=== PATIENT | female | born 1955 | race Caucasian/White ===

== ENCOUNTER 2018-11-25 18:49 | Emergency (ER) | payer OTHER ==
[~2018-11-25] VITALS: Ht 157.5 cm; Wt 126.1 kg
--- OUTSIDE RECORDS SUMMARY | ~2018-11-25 | XMS | Encounter Summary ---
Demographics + + + | Address | [address] | | | [place] [address] | + + + | Home Phone | | + + + | Preferred Language | Unknown | + + + | Marital Status | | + + + | Scientology Affiliation | 1013 | + + + | Race | Unknown | + + + | Ethnic Group | Unknown | + + + Author + + + | Author | [facility] | | | and [place] | + + + | Organization | [facility] | | | and [place] | + + + | Address | Unknown | + + + | Phone | Unavailable | + + + Support + + +---------+ + | Name | Relationship | Address | Phone | + + +---------+ + | Tammi Bowen | ECON | Unknown | | + + +---------+ + | Travon Hansen | ECON | Unknown | | + + +---------+ + | Katiana Rosado | ECON | Unknown | | + + +---------+ + Care Team Providers + +------+ + | Care Credit Specialist Name | Role | Phone | + +------+ + | Anival Dietz MD | PCP | | + +------+ + Encounter Details +--------+ + + + + | Date | Type | Department | Care Team | Description | +--------+ + + + + | 10/10/ | Abstract | [facility] [place] | Jaida Yoo W, | | | 2018 | | NEPHROLOGY [address] | MD [address] | | | | | [address] | [address] [place] | | | | | [place], [place] | [place] [address] | | | | | [address] | [phone] | | | | | [phone] | | | +--------+ + + + + Social History + +-------+ +--------+------+ | Tobacco Use | Types | Packs/Day | Years | Date | | | | | Used | | + +-------+ +--------+------+ | Never Smoker | | | | | + +-------+ +--------+------+ + +---+---+---+ | Smokeless Tobacco: | | | | | Never Used | | | | + +---+---+---+ + + +---------+ + | Alcohol Use | Drinks/We | oz/Week | Comments | | | ek | | | + + +---------+ + | No | | | | + + +---------+ + + + + | Sex Assigned at | Date Recorded | | | | + + + | Not on file | | + + + + + + + | Job Start Date | Occupation | Industry | + + + + | Not on file | Not on file | Not on file | + + + + + + + + | Travel History | Travel Start | Travel End | + + + + + + | No recent travel history available. | + + documented as of this encounter Plan of Treatment +--------+ + + + + | Date | Type | Specialty | Care Team | Description | +--------+ + + + + | 12/02/ | Off-Site | Nephrology | Jerad Ratliff | | | 2018 | Visit | | M, DO [address] | | | | | | [address] | | | | | | [place] | | | | | | [id number] | | | | | | | | +--------+ + + + + documented as of this encounter Visit Diagnoses Not on filedocumented in this encounter"
--- OUTSIDE RECORDS SUMMARY | ~2018-11-25 | XMS | Encounter Summary ---
Demographics + + + | Address | [address] | | | [place] [address] | + + + | Home Phone | | + + + | Preferred Language | Unknown | + + + | Marital Status | | + + + | Adventist Affiliation | 1013 | + + + | Race | Unknown | + + + | Ethnic Group | Unknown | + + + Author + + + | Author | [facility] | | | and [place] | + + + | Organization | [facility] | | | and [place] [...] Team Providers + +------+ + | Care Maintenance Team Leader Name | Role | Phone | + +------+ + | Anival Dietz MD | PCP | | + +------+ + Reason for Visit +--------+ + | Reason | Comments | +--------+ + | Other | | +--------+ + Encounter Details +--------+ + + + + | Date | Type | Department | Care Team | Description | +--------+ + + + + | 09/12/ | Telephone | [facility] [place] | Jaida Yoo W, | Other | | 2019 | | NEPHROLOGY [address] | MD [address] | | | | | [address] | [address] [place] | | | | | [place] | [place] [address] | | | | | [address] | [phone] | | | | | [phone] | | | +--------+ + + + [...] | Visit | | M, DO [address] | | | | | | [address] | | | | | | [place] | | | | | | [address] | | | | | | | | +--------+ + + + + documented as of this encounter Visit Diagnoses Not on filedocumented in this encounter"
--- OUTSIDE RECORDS SUMMARY | ~2018-11-25 | XMS | Encounter Summary ---
Demographics + + + | Address | [address] | | | [place] [address] | + + + | Home Phone | | + + + | Preferred Language | Unknown | + + + | Marital Status | | + + + | Yazdanism Affiliation | 1013 | + + + | Race | Unknown | + + + | Ethnic Group | Unknown | + + + Author + + + | Author | [facility] | | | and [place] | + + + | Organization | [facility] | | | and [place] | [...] Team Providers + +------+ + | Care Computer Operations Specialist Name | Role | Phone | + +------+ + | Anival Dietz MD | PCP | | + +------+ + Reason for Referral Evaluate & Treat (Routine) +--------+ + + + + + | Status | Reason | Specialty | Diagnoses / | Referred By | Referred To | | | | | Procedures | Contact | Contact | +--------+ + + + + + | Closed | Specialty | Surgery / | Diagnoses | Borden, | Michi, | | | Services | General | CKD | MD Sadie | MD Sadie | | | Required | Surgery | (chronic | [address] | [address] | | | | | kidney | [place], | | | | | disease) | [place] | [place] [address] | | | | | stage 5, GFR | [address] | Phone: | | | | | less than | Phone: | [phone] | | | | | 15 ml/min | [phone] | Fax: | | | | | (HCC) | Fax: | [phone] | | | | | | [phone] | | +--------+ + + + + + Encounter Details +--------+ + + + + | Date | Type | Department | Care Team | Description | +--------+ + + + + | 10/18/ | Orders Only | [facility] [place] [facility] | Sadie Borden MD | CKD (chronic kidney | | 2019 | | SURGERY [address] | [address] [facility] | disease) stage 5, | | | | [place], [place] | [place] [address] | GFR less than 15 | | | | [address] | [phone] | ml/min (HCC) | | | | [phone] | | (Primary Dx) | +--------+ + + + + Social [...] [address] | | | | | | [address] | | | | | | [place] | | | | | | [address] | | | | | | | | +--------+ + + + + documented as of this encounter Visit Diagnoses + + | Diagnosis | + + | CKD (chronic kidney disease) stage 5, GFR less than 15 ml/min ([facility]) - Primary Chronic | | kidney disease, Stage V | + + documented in this encounter"
--- OUTSIDE RECORDS SUMMARY | ~2018-11-25 | XMS | Encounter Summary ---
Demographics + + + | Address | [address] | | | [place] [address] | + + + | Home Phone | | + + + | Preferred Language | Unknown | + + + | Marital Status | | + + + | Judaism Affiliation | 1013 | + + + | Race | Unknown | + + + | Ethnic Group | Unknown | + + + Author + + + | Author | [facility] | | | and [place] | + + + | Organization | [facility] | | | and [place] [...] Team Providers + +------+ + | Care Pharmacy Helper Name | Role | Phone | + +------+ + | Anival Dietz MD | PCP | | + +------+ + Reason for Visit Evaluate & Treat (Routine) + +--------+ + + + + | Status | Reason | Specialty | Diagnoses / | Referred By | Referred To | | | | | Procedures | Contact | Contact | + +--------+ + + + + | Authorized | | Nephrology | Diagnoses | J Luis, | Gaudencio, | | | | | End stage | Anival | Jerad Webb DO | | | | | renal | MD Jose | [address] | | | | | disease | [address] | [address] | | | | | ([facility]) | [place] | [address] [place] | | | | | Procedures | [place], [place] | [place], [place] | | | | | [place] | [address] | [address] Phone: | | | | | RELATED SVC | Phone: | [phone] | | | | | MONTHLY | [phone] | Fax: | | | | | 20&/> YR OLD | Fax: | [phone] | | | | | 4/> VISITS | [phone] | | + +--------+ + + + + Encounter Details +--------+ + + + + | Date | Type | Department | Care Team | Description | +--------+ + + + + | 09/23/ | Off-Site | [facility] [place] | Jerad Ratliff | ESRD (end stage | | 2019 | Visit | NEPHROLOGY [address] | M, DO [address] | renal disease) (HCC) | | | | [address] | [place] | (Primary Dx) | | | | [place], [place] | [place] | | | | | [address] | [address] | | | | | [phone] | | | +--------+ + + + [...] + + documented as of this encounter Last Filed Vital Signs + + + + | Vital Sign | Reading | Time Taken | + + + + | Blood Pressure | 157/72 | 09/23/2018 1619 PST | + + + + | Pulse | - | - | + + + + | Temperature | 36.8 C (98.2 F) | 09/23/2018 1619 PST | + + + + | Respiratory Rate | - | - | + + + + | Oxygen Saturation | - | - | + + + + | Inhaled Oxygen | - | - | | Concentration | | | + + + + | Weight | - | - | + + + + | Height | - | - | + + + + | Body Mass Index | - | - | + + + + documented in this encounter Patient Instructions Patient Instructions Jerad Ratliff DO - 09/23/2018 10:30 PSTNone. documented in this encounter Progress Notes Jerad Ratliff DO - 09/23/2018 1030 PSTFormatting of this note might be different fro m the original. Subjective: [facility] NOTE Patient ID: Yaritza Gusman is a 63 y.o. female. 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 She is doing better with her fluid restriction and interdialytic weight gains. Denies liset st pain, anorexia, STARK or hiccups. 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 It has a very strong thrill and is well healed. She also has a history of anemia secondary to CKD, CKD/MBD, hypertension, centripetal obesi ty, and Type II DM. Outpatient Prescriptions Marked as Taking for the 09/23/18 encounter (Off-Site Visit) with Jon Ratliff DO Medication Sig Dispense Refill b complex-vitamin c-folic acid (NEPHRO-CALIN) tablet Take 1 tablet by mouth Daily. 90 ta blet 3 [place]NA MICROLET LANCETS MISC benzonatate (TESSALON) 200 MG capsule Take 200 mg by mouth Twice daily as needed. Blood Glucose Monitoring Suppl (CONTOUR NEXT MONITOR) w/Device KIT Cholecalciferol (VITAMIN D PO) Take 1,000 Units by mouth Daily. cloNIDine (CATAPRES) 0.2 MG tablet Take 1 tablet by mouth 2 times daily. (Patient holly welch differently: Take 0.3 mg by mouth 2 times daily.) 180 tablet 3 CONTOUR NEXT TEST strip desonide (DESOWEN) 0.05% cream Apply topically 2 times daily. dilTIAZem (CARTIA XT) 240 MG 24 hr capsule Take 1 capsule by mouth Daily. 90 capsule 3 doxercalciferol (HECTOROL) 2 mcg/mL injection Inject 1 mcg into the vein Three times a week. dulaglutide (TRULICITY) 1.5 mg/0.5 mL injection Inject 1.5 mg under the skin Once a wee k. epoetin brendan (EPOGEN,PROCRIT) 3,000 units/mL injection Inject 4,000 Units under the ski n Three times a week. gentamicin 0.1% cream Apply topically Three times a week. Bring to dialysis clinic 30 g 0 HUMULIN R U-500 KWIKPEN 500 UNIT/ML concentrated injection (pen) 100 u in the AM and 80 u in the PM hydrALAZINE (APRESOLINE) 50 MG tablet Take 1 tablet by mouth 2 times daily. (Patient bayron cadet differently: Take 50 mg by mouth Daily.) 60 tablet 11 insulin pen needle (B-D ULTRAFINE III SHORT PEN) 31 gauge x 8 mm by Other route as need ed for Other. Timolol Maleate (ISTALOL) 0.5 % (DAILY) SOLN Apply 1 drop to eye Daily. timolol maleate (TIMOPTIC) 0.5% ophthalmic solution traMADol (ULTRAM) 50 mg tablet Take 1 tablet by mouth every 8 hours as needed. 20 table t 0 VELPHORO 500 MG chewable tablet Allergies Allergen Reactions Codeine Nausea And Vomiting Penicillins Swelling Arm it was given in swelled up Adhesive & Tape Itching Atorvastatin Nausea Only Doesn Pravastatin Nausea Only Review of Systems Objective: BP 157/72 | Temp 36.8 C (98.2 F) EDW 127 kg Physical Exam Heart: Regular rate and rhythm with no S3, S4, murmur or rub. Lungs: CTA bilaterally. No rales or wheezes. Abdomen: soft, obese, nontender, NABS. Extremities: no edema, clubbing, or cyanosis. (+) 5 mm AVF at Right arm with strong thril l. LAB: BUN 78, Cr 5.55, K+ 4.6, HCO3 22, Ca++ 8.9, PO4 6.7, PTH 303, Alb 3.7, Hbaic 8.49 %, Hb 11.5, TSat. = 15 %, Ferritin 172, spKT/V = 1.46. Assessment: 1. ESRD-- her adequacy and ECF volume appear stable on her current Rx, N17H, 2K+, QB 400 , QD 600, 4 hours, thrice weekly. 2. Hypertension-- her BP control is farily good. However, given her multiple CV risk facto rs, I am wondering if she may benefit from switching to an ACEI, e.g. Lisinopril. She DENIES every having a BP med that caused cough, or tongue swelling. She verbally conse nts to trying it, therefore will DC the hydralazine and start lisinopril 10 mg, Q daily. 3. Anemia secondary CKD-- she may need some additional Fe, however the Hb is improved. and will decrease the EPO by 25%. 4. CKD/MBD--her PTH is steadily improving on the current dose of Hectorol. She was couns eled about foods rich in PO4 as well, and is using Velphoro. 5. Nutrition-- Salb is decreased minimally. I encouraged her to maximize her daily inta ke of high biological value protein. 6. Transplantation--she is still considering this long-term. 7. Type II DM-- suboptimal control. This is being managed by her PCP, Dr. Dietz. 8. Dialysis access-- this appears to be developing very nicely. She is to see Dr. Stephens in the near future, to see if the AVF could be cannulated sooner, e.g. 8 weeks as it is deve loping very quickly? Plan: 1. Will decrease her EPO by 25 %, per the Regine anemia algorithm to target the Hb 10-11 g/dl. 2. Will DC her Hydralazine. 3. Start lisinopril 10 mg, Q day, as above. 4. If her BP is too low, will decrease her dose of the Diltiazem ER? 5. She is weighing the Pro's and Con's of pursuing a renal allograft, for now. 6. Will recheck her in 2 weeks by the Nephrology Service. Cc: Suman Stephens MD, FACS [place] Dietz M.D. documented in this e ncounter Plan of Treatment +--------+ + + + + | Date | Type | Specialty | Care Team | Description | +--------+ + + + + | 12/02/ | Off-Site | Nephrology | Jerad Ratliff | | | 2018 | Visit | | DO Jon [address] | | | | | | [address] | | | | | | [place] | | | | | | [address] | | | | | | | | +--------+ + + + + documented as of this encounter Visit Diagnoses + + | Diagnosis | + + | ESRD (end stage renal disease) (HCC) - Primary End stage renal disease | + + documented in this encounter"
--- OUTSIDE RECORDS SUMMARY | ~2018-11-25 | XMS | Encounter Summary ---
Demographics + + + | Address | [address] | | | [place] [address] | + + + | Home Phone | | + + + | Preferred Language | Unknown | + + + | Marital Status | | + + + | Buddhist Affiliation | 1013 | + + + | Race | Unknown | + + + | Ethnic Group | Unknown | + + + Author + + + | Author | [facility] | | | and [place] | + + + | Organization | [facility] | | | and [place] | [...] Team Providers + +------+ + | Care Physician Credentialing Specialist Name | Role | Phone | + +------+ + | Anival Dietz MD | PCP | | + +------+ + Encounter Details +--------+ + + + + | Date | Type | Department | Care Team | Description | +--------+ + + + + | 09/19/ | Documentati | [facility] [place] | Jaida Yoo W, | | | 2019 | on | NEPHROLOGY [address] | [address] | | | | | [address] | [address] [place] | | | | | [place], [place] | [place] [address] | | | | | [address] | [phone] | | | | | [phone] | | | +--------+ + + + [...] + + documented as of this encounter Progress Notes Elise Gudino - 09/19/2018 1256 PSTManually faxed FMLA papers from [facility] [employer] to: Teressa Cosme, round kiln drawer at (fx) [phone]. Sent original copy to scan. documented in this enc ounter Plan of Treatment +--------+ + + + + | Date | Type | Specialty | Care Team | Description | +--------+ + + + + | 12/02/ | Off-Site | Nephrology | Jerad Ratliff | | | 2018 | Visit | | DO Khloe Webb | | | | | | [address] | | | | | | [place] | | | | | | [address] | | | | | | | | +--------+ + + + + documented as of this encounter Visit Diagnoses Not on filedocumented in this encounter"
--- OUTSIDE RECORDS SUMMARY | ~2018-11-25 | XMS | Encounter Summary ---
Demographics + + + | Address | [address] | | | [place] [address] | + + + | Home Phone | | + + + | Preferred Language | Unknown | + + + | Marital Status | | + + + | Samaritan Affiliation | 1013 | + + + | Race | Unknown | + + + | Ethnic Group | Unknown | + + + Author + + + | Author | [facility] | | | and [place] | + + + | Organization | [facility] | | | and [place] [...] Team Providers + +------+ + | Care Business Line Controller Name | Role | Phone | + [...] NEPHROLOGY [address] | MD [address] | | | | | [address] | [address] [place] | | | | | [place], [place] | [place] [address] | | | | | [address] | [phone] | | | | | [phone] | | | +--------+ + + + [...] | Visit | | M, DO [address] | | | | | | [address] | | | | | | [place] | | | | | | [id number] | | | | | | | | +--------+ + + + + documented as of this encounter Visit Diagnoses Not on filedocumented in this encounter"
--- OUTSIDE RECORDS SUMMARY | ~2018-11-25 | XMS | Encounter Summary ---
Demographics + + + | Address | [address] | | | [place] [address] | + + + | Home Phone | | + + + | Preferred Language | Unknown | + + + | Marital Status | | + + + | Zoroastrian Affiliation | 1013 | + + + | Race | Unknown | + + + | Ethnic Group | Unknown | + + + Author + + + | Author | [facility] | | | and [place] | + + + | Organization | [facility] | | | and [place] | [...] Team Providers + +------+ + | Care Financial Services Specialist Name | Role | Phone | + +------+ + | Anival Dietz MD | PCP | | + +------+ + Reason for Visit +---------+ + | Reason | Comments | +---------+ + | Post Op | Right arm translocation cephalic vein fistula | +---------+ + Evaluate & Treat (Routine) + + + + + + + | Status | Reason | Specialty | Diagnoses / | Referred By | Referred To | | | | | Procedures | Contact | Contact | + + + + + + + | Authorized | Specialty | Surgery / | Diagnoses | Yoo, | Field, | | | Services | General | End stage | Jaida Aggarwal, | Suman Jones, | | | Required | Surgery | renal | [address] | , [address] | | | | | disease | [place] | [address] | | | | | ([facility]) | [address] | [place], | | | | | | [place] | [place] [address] | | | | | | [address] | Phone: | | | | | | Phone: | [phone] | | | | | | [phone] | Fax: | | | | | | Fax: | [phone] | | | | | | [phone] | | + + + + + + + Encounter Details +--------+---------+ + + + | Date | Type | Department | Care Team | Description | +--------+---------+ + + + | 09/19/ | Office | [facility] | Suman Stephens | CKD (chronic kidney | | 2019 | Visit | SURGERY [address] | MD Karen, FACS [address] | disease) stage 5, | | | | [place], [place] | [facility] | GFR less than 15 | | | | [address] | [place] [address] | ml/min (HCC) | | | | [phone] | [phone] | (Primary Dx); | | | | | | Post-operative state | +--------+---------+ + + + Social History + +-------+ [...] + + + | Blood Pressure | - | - | + + + + | Pulse | 72 | 09/19/2018834 PST | + + + + | Temperature | 35.7 C (96.3 F) | 09/19/2018834 PST | + + + + | Respiratory Rate | - | - | + + + + | Oxygen Saturation | 97% | 09/19/2018834 PST | + + + + | Inhaled Oxygen | - | - | | Concentration | | | + + + + | Weight | 129.3 kg (285 lb 0.9 | 09/19/2018 0835 PST | | | oz) | | + + + + | Height | 154.9 cm (5' 1") | 09/19/2018 0835 PST | + + + + | Body Mass Index | 53.86 | 09/19/2018 0835 PST | + + + + documented in this encounter Progress Notes , Suman Jones MD, FACS - 09/19/2018 0840 PSTFormatting of this note might be differen t from the original. Patient Identification: Yaritza Gusman 1955 Is a 63 y.o. female , a patie nt of Anival Dietz MD. Patient is here alone. S: Date of surgery: 08/15/2018. Title of surgery: RIGHT arm- translocation cephalic vein. Date of surgery: 07/25/2018. Title of surgery: RIGHT brachial artery t o cephalic vein fistula. Physician notes: Patient arrives 35 day(s) s/p RIGHT arm translocation of cephalic vein. She reports recove ring well post surgery. Patient denies right arm or hand pain , admits to slight numbness . 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, type II, INSULIN & ORAL Dependent 05/25/2015 Diabetic macular edema of both eyes ([facility]) Elevated hemoglobin A1c 06/14/2018 ESRD (end stage renal disease) ([facility]) Folliculitis Gait instability Glaucoma Greater trochanteric bursitis of right hip Hemodialysis patient ([facility]) sun- Hyperlipemia Hypertension Diagnosed ~2004 Hypoxemia requiring supplemental oxygen Influenza pneumonia 1967 Recovered Insulin dependent diabetes mellitus ([facility]) Obesity Obstructive sleep apnea on CPAP 05/29/2012 On CPAP Paroxysmal supraventricular tachycardia ([facility]) PONV (postoperative nausea and vomiting) Proteinuria Psoriasis Seborrheic keratosis Shoulder fracture 2011 Currently healing - from fall at work Vitamin D deficiency Wears partial dentures Past Surgical History: Procedure Laterality Date ABCESS DRAINAGE 1980 right arm AV FISTULA INSERTION Right 07/25/2018 Procedure: INSERTION AV FISTULA; Surgeon: Suman Stephens MD, FACS; Location: [facility] OR CATARACT REMOVAL 2014 bilateral Insertion of tunneled central venous catheter 06/04/2018 without subcutaneous port or pump: Dr. Jose Youssfe, [facility] KNEE ARTHROSCOPY 2009 left knee SHUNT PLACEMENT/INSERTION N/A 06/14/2018 Procedure: TUNNEL HEMODIALYSIS CATHETER; Surgeon: Sadie Borden MD; Location: [facility] O R TONSILLECTOMY AND ADENOIDECTOMY 1958 VEIN SURGERY Right 08/15/2018 Procedure: RIGHT arm-translocation cephalic vein; Surgeon: Suman Stephens MD, FACS; Location: [facility] MAIN OR Allergies Allergen Reactions Codeine Nausea And Vomiting Penicillins Swelling Arm it was given in swelled up Adhesive & Tape Itching Atorvastatin Nausea Only Doesn Lisinopril Nausea Only Losartan Nausea Only Lovastatin Nausea Only Pravastatin Nausea Only Medications: Outpatient Encounter Prescriptions as of 09/19/2018 Medication Sig Dispense Refill b complex-vitamin c-folic [...] epoetin brendan (EPOGEN,PROCRIT) 3,000 units/mL injection Inject 8,000 Units under the ski n Three times a week. gentamicin 0.1% cream Apply topically Three times a week. Bring to dialysis clinic 30 g 0 HUMULIN R U-500 KWIKPEN 500 UNIT/ML concentrated injection (pen) 100 u in the AM and 80 u in the PM hydrALAZINE (APRESOLINE) 50 MG tablet Take 1 tablet by mouth 2 times daily. 60 tablet 1 1 insulin pen needle (B-D ULTRAFINE III SHORT [...] t 0 VELPHORO 500 MG chewable tablet Facility-Administered Encounter Medications as of 09/19/2018 Medication Dose Route Frequency Provider Last Rate Last Dose ondansetron (ZOFRAN ODT) disintegrating tablet 4 mg 4 mg Oral Q6H PRN Suman camilo MD, FACS Family History Problem Relation Age of Onset Other (see comment) Brother Neurodegenerative disease Diabetes Brother Ovarian cancer Sister Stomach cancer Sister Cancer Sister Rashes / skin problems Paternal Grandfather Breast cancer Maternal Grandmother Coronary artery disease Other Diabetes Other Kidney disease Neg Hx Social History: She reports that she has never smoked. She has never used smokeless tobacco. She reports th at she does not drink alcohol or use drugs. PHYSICAL EXAM Vitals: 09/19/18 0835 Pulse: 72 Temp: 35.7 C (96.3 F) TempSrc: Temporal SpO2: 97% Weight: 129.3 kg (285 lb 0.9 oz) Height: 1.549 m (5' 1") Body mass index is 53.86 kg/m. General Appearance: Alert, cooperative, no distress, appears stated age. Skin: Warm and dry Upper Extremities: RIGHT arm incisions ar healing, dry eschar in the upper portion of the wound, good thrill present. Sutures removed from RIGHT arm incision. Palpable Pulses: RIGHT LEFT Brachial Radial 2+ Ulnar Neurologic: Alert and oriented x3,Moving all 4 extremities.Am bulates with Walker. ULTRASOUND REPORT: PATIENT NAME : Yaritza Gusman EQUIPMENT: [employer] M-Turbo with 10-5 mHertz probe. INDICATIONS: S/P RIGHT arm translocation of cephalic vein FINDING: RIGHT cephalic vein measures 7.7 mm and is 3.1 mm deep to the skin. Upper arm is 6.7 mm wide and 3.0 mm deep to the skin. IMPRESSION: Functioning AV fistula. Assessment 1. CKD (chronic kidney disease) stage 5, GFR less than 15 ml/min ([facility]) 2. Post-operative state Plan 1. S/P RIGHT arm translocation of cephalic vein Healing well. Return to clinic in 3 weeks. Suman Stephens MD, FACS Vascular and General Surgery documented in t his encounter Plan of Treatment +--------+ + + + + | Date | Type | Specialty | Care Team | Description | +--------+ + + + + | 12/02/ | Off-Site | Nephrology | Jerad Ratliff | | | 2018 | Visit | | DO Jon [address] | | | | | | [address] | | | | | | [place] | | | | | | [address] | | | | | | | | +--------+ + + + + documented as of this encounter Visit Diagnoses + + | Diagnosis | + + | CKD (chronic kidney disease) stage 5, GFR less than 15 ml/min ([facility]) - Primary Chronic | | kidney disease, Stage V | + + | Post-operative state Other postprocedural status | + + documented in this encounter
--- OUTSIDE RECORDS SUMMARY | ~2018-11-25 | XMS | Encounter Summary ---
Demographics + + + | Address | [address] | | | [place] [address] | + + + | Home Phone | | + + + | Preferred Language | Unknown | + + + | Marital Status | | + + + | Zoroastrianism Affiliation | 1013 | + + + | Race | Unknown | + + + | Ethnic Group | Unknown | + + + Author + + + | Author | [facility] | | | and [place] | + + + | Organization | [facility] | | | and [place] [...] Team Providers + +------+ + | Care Email Marketing Processor Name | Role | Phone | + [...] [address] | | | | | ([facility]) | [address] [place] | [address] | | | | | Procedures | [place], [place] | [place], [place] | | | | | ID ESRD | [id number] | [address] Phone: | | | | | RELATED SVC | Phone: | [phone] | | | | | MONTHLY | [phone] | Fax: | | | | | 20&/> YR OLD | Fax: | [phone] | | | | | 4/> VISITS | [phone] | | + +--------+ + + + [...] | | [address] | [place] | (Primary Dx) | | | | [place], [place] | [place] | | | | | [address] | [address] | | | | | [phone] | | | +--------+ + + + [...] seen on the MWF shift at the [facility], Judy pearce. She is doing [...] Nephrology Service. Cc: Suman Stephens MD, FACS [place] Reg[facility] Fairviewcarlo Dietz M.D. documented in this e ncounter Plan of Treatment +--------+ + + + + | Date | Type | Specialty | Care Team | Description | +--------+ + + + + | 12/02/ | Off-Site | Nephrology | Jerad Ratliff | | | 2018 | Visit | | DO Jon [address] | | | | | | [address] | | | | | | [place] | | | | | | [address] | | | | | | | | +--------+ + + + + documented as of this encounter Visit Diagnoses + + | Diagnosis | + + | ESRD (end stage renal disease) (HCC) - Primary End stage renal disease | + + documented in this encounter"
--- OUTSIDE RECORDS SUMMARY | ~2018-11-25 | XMS | Encounter Summary ---
Demographics + + + | Address | [address] | | | [place] [address] | + + + | Home Phone | | + + + | Preferred Language | Unknown | + + + | Marital Status | | + + + | Yarsani Affiliation | 1013 | + + + | Race | Unknown | + + + | Ethnic Group | Unknown | + + + Author + + + | Author | [facility] | | | and [place] | + + + | Organization | [facility] | | | and [place] | [...] Team Providers + +------+ + | Care Shop Welder Name | Role | Phone | + +------+ + | Anival Dietz MD | PCP | | + +------+ + Reason for Visit +---------+ + | Reason | Comments | +---------+ + | Post Op | right arm translocation cephalic vein | +---------+ + Evaluate & Treat (Routine) [...] End stage | Jaida Aggarwal, | Suman I, | | | Required | Surgery | renal | [address] | , [address] | | | | | disease | [place] | [address] | | | | | ([facility]) | [address] | [place], | | | | | | [place], [place] | [place] [address] | | | | | | [address] | Phone: | | | | | | Phone: | [phone] | | | | | | [phone] | Fax: | | | | | | Fax: | [phone] | | | | | | [phone] | | + + + + + + + Encounter Details +--------+---------+ + + + | Date | Type | Department | Care Team | Description | +--------+---------+ + + + | 10/10/ | Office | [facility] | Suman Stephens | CKD (chronic kidney | | 2019 | Visit | SURGERY [address] | MD Karen, FACS [address] | disease) stage 5, | | | | [place], [place] | [facility] | GFR less than 15 | | | | [address] | [place] [address] | ml/min (HCC) | | | | [phone] | [phone] | (Primary Dx); | | | | [...] + + + + | Pulse | 80 | 10/10/2018954 PST | + + + + | Temperature | 36.1 C (97 F) | 10/10/2018954 PST | + + + + | Respiratory Rate | 16 | 10/10/2018954 PST | + + + + | Oxygen Saturation | 95% | 10/10/2018954 PST | + + + + | Inhaled Oxygen | - | - | | Concentration | | | + + + + | Weight | 129.3 kg (285 lb) | 10/10/2018 0955 PST | + + + + | Height | 154.9 cm (5' 1") | 10/10/2018 0955 PST | + + + + | Body Mass Index | 53.85 | 10/10/2018 0955 PST | + + + + documented in this encounter Progress Notes Field, Suman Jones MD, FACS - 10/10/2018 1000 PSTFormatting of this note might be differen t from the original. Patient Identification: Yaritza Gusman 1955 Is a 63 y.o. female , a patie nt of Anival Dietz MD. Patient is here with alone. S: Date of surgery: 08/15/2018. Title of surgery: RIGHT arm- translocation cephalic vei n. Date of surgery: 07/25/2018. Title of surgery: RIGHT br achial artery to cephalic vein fistula. Physician notes: Patient arrives 56 day(s) s/p RIGHT arm translocation of cephalic vein. Patient denies righ t arm or hand pain , denies numbness. Patient is currently dialyzing via RIGHT tunneled IJ catheter, reports they said "the venous side" is not functioning. Next dialysis is Sunday. 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, type II, INSULIN & ORAL Dependent 05/25/2015 Diabetic macular edema of both eyes (HCC) Elevated hemoglobin A1c 06/14/2018 ESRD (end stage renal disease) (HCC) Folliculitis Gait instability Glaucoma Greater trochanteric bursitis of right hip Hemodialysis patient (HCC) sun- Hyperlipemia Hypertension Diagnosed ~2004 Hypoxemia requiring supplemental oxygen Influenza pneumonia 1967 Recovered Insulin dependent diabetes mellitus (HCC) Obesity Obstructive sleep apnea on CPAP 05/29/2012 On CPAP Paroxysmal supraventricular tachycardia (HCC) PONV (postoperative nausea and vomiting) Proteinuria Psoriasis Seborrheic keratosis Shoulder fracture 2011 Currently healing - from fall at work Vitamin D deficiency Wears partial dentures Past Surgical History: Procedure Laterality Date ABCESS DRAINAGE 1981 right arm AV FISTULA INSERTION Right 07/25/2018 Procedure: INSERTION AV FISTULA; Surgeon: Suman Stephens MD, FACS; [facility] bilateral Insertion of tunneled central venous catheter 06/04/2018 without subcutaneous port or pump: Dr. Jose Youssef, [facility] KNEE ARTHROSCOPY 2009 left knee SHUNT PLACEMENT/INSERTION N/A 06/14/2018 Procedure: TUNNEL HEMODIALYSIS CATHETER; Surgeon: Sadie Borden MD; Location: [facility] MAIN O R TONSILLECTOMY AND ADENOIDECTOMY 9 VEIN SURGERY Right 08/15/2018 Procedure: RIGHT arm-translocation cephalic vein; Surgeon: Suman Stephens MD, FACS; Location: [facility] MAIN OR Allergies Allergen Reactions Codeine Nausea And Vomiting Penicillins Swelling Arm it was given in swelled up Adhesive & Tape Itching Atorvastatin Nausea Only Doesn Pravastatin Nausea Only Medications: Outpatient Encounter Prescriptions as of 10/10/2018 Medication Sig Dispense Refill b complex-vitamin c-folic [...] Other route as need ed for Other. lisinopril (PRINIVIL, ZESTRIL) 10 mg tablet Take 1 tablet by mouth Daily. 60 tablet 5 Timolol Maleate (ISTALOL) 0.5 % (DAILY) SOLN Apply 1 drop to eye Daily. timolol maleate (TIMOPTIC) 0.5% ophthalmic solution traMADol (ULTRAM) 50 mg tablet Take 1 tablet by mouth every 8 hours as needed. 20 table t 0 VELPHORO 500 MG chewable tablet No facility-administered encounter medications on file as of 10/10/2018. Family History Problem Relation Age of Onset [...] alcohol or use drugs. PHYSICAL EXAM Vitals: 10/10/18 0955 Pulse: 80 Resp: 16 Temp: 36.1 C (97 F) TempSrc: Temporal SpO2: 95% Weight: 129.3 kg (285 lb) Height: 1.549 m (5' 1") Body mass index is 53.85 kg/m. General Appearance: Alert, cooperative, no distress, appears stated age Skin: Warm and dry Upper Extremities: RIGHT arm incision healed. Hand is pink and warm. Palpable Pulses: RIGHT LEFT Brachial Radial 1+ Ulnar Neurologic: Alert and oriented x3,Moving all 4 extremities. , Gait normal, ambulates with a walker. ULTRASOUND REPORT: PATIENT NAME : Yaritza Gusman EQUIPMENT: [employer] M-Turbo with 10-5 mHertz probe. INDICATIONS: S/P RIGHT arm translocation of cephalic vein FINDING: RIGHT cephalic vein measures 7.4 mm and 2 mm deep to the skin towards elbow cephalic is 8.2 mm and 3.1 mm deep to skin. Good flow is present. IMPRESSION: Functioning well RIGHT Av. Fistula. Assessment 1. CKD (chronic kidney disease) stage 5, GFR less than 15 ml/min ([facility]) 2. Post-operative state Plan 1. S/P RIGHT arm translocation of cephalic vein Healing well. Will give Okay to start using RIGHT AV. Fistula starting Sunday10/11/2018. She is interested in a prescription for numbing medicine, recommend she discuss this with [facility] asphalt patcher or the dialysis center. Informed patient after three successful uses of RIGHT AV Fistula would then consider RIGHT tunneled IJ catheter removal. Patient to resume diet and activities as tolerated. Patient to continue to follow with [facility] asphalt patcher and primary care. I will be available should future surgical complications d evelop. I appreciate having been involved in the care of this patient. Suman Stephens MD, FACS Vascular and General Surgery documented in t his encounter Plan of Treatment +--------+ + + + + | Date | Type | Specialty | Care Team | Description | +--------+ + + + + | 12/02/ | Off-Site | Nephrology | Gaudencio Jerad | | | 2018 | Visit | | DO Jon [address] | | | | | | [place] | | | | | | [place] | | | | | | [address] | | | | | | | | +--------+ + + + + documented as of this encounter Visit Diagnoses + + | Diagnosis | + + | CKD (chronic kidney disease) stage 5, GFR less than 15 ml/min ([facility]) - Primary Chronic | | kidney disease, Stage V | + + | Post-operative state Other postprocedural status | + + documented in this encounter
--- OUTSIDE RECORDS SUMMARY | ~2018-11-25 | XMS | Encounter Summary ---
Demographics + + + | Address | [address] | | | [place] [address] | + + + | Home Phone | | + + + | Preferred Language | Unknown | + + + | Marital Status | | + + + | Anabaptism Affiliation | 1013 | + + + | Race | Unknown | + + + | Ethnic Group | Unknown | + + + Author + + + | Author | [facility] | | | and [place] | + + + | Organization | [facility] | | | and [place] | + + + | Address | Unknown | + + + | Phone | Unavailable | + + + Support + + +---------+ + | Name | Relationship | Address | Phone | + + +---------+ + | Tammi Bowen | ECON | Unknown | | + + +---------+ + | Travon aHnsen | ECON | Unknown | | + + +---------+ + | Katiana Rosado | ECON | Unknown | | + + +---------+ + Care Team Providers + +------+ + | Care Informatica Architect Name | Role | Phone | + [...] | | | | | disease) | [place] | [place] [address] | | | | | stage 5, GFR | [address] | Phone: | | | | | less than | Phone: | [phone] | | | | | 15 ml/min | [phone] | Fax: | | | | | (HCC) | Fax: | [phone] | | | | | | [phone] | | +--------+ + + + + + Reason for Visit + + + | Reason | Comments | + + + | Procedure | Tunneled Hemo Dialysis Cath Removal | + + + Evaluate & Treat (Routine) +--------+ + + + + + | Status | Reason | Specialty | Diagnoses / | Referred By | Referred To | | | | | Procedures | Contact | Contact | +--------+ + + + + + | Closed | Specialty | Surgery / | Diagnoses | Michi, | Michi, | | | Services | General | CKD | MD Sadei | MD Sadie | | | Required | Surgery | (chronic | [address] | [address] | | | | | kidney | [place] | [place], | | | | | disease) | [place], [place] | [place] [address] | | | | | stage 5, GFR | [address] | Phone: | | | | | less than | Phone: | [phone] | | | | | 15 ml/min | [phone] | Fax: | | | | | (HCC) | Fax: | [phone] | | | | | | [phone] | | +--------+ + + + + + Encounter Details +--------+ + + + + | Date | Type | Department | Care Team | Description | +--------+ + + + + | 10/31/ | Procedure | [facility] | Sadie Borden MD | CKD (chronic kidney | | 2019 | visit | SURGERY [address] | [address] [facility] | disease) stage 5, | | | | [place], [place] | [place] [address] | GFR less than 15 | | | | [address] | [phone] | ml/min (HCC) | | | | [phone] | | | +--------+ + + + [...] + + + | Blood Pressure | 128/68 | 10/31/20181247 PDT | + + + + | Pulse | 83 | 10/31/20181247 PDT | + + + + | Temperature | 36.9 C (98.4 F) | 10/31/20181247 PDT | + + + + | Respiratory Rate | 16 | 10/31/20181247 PDT | + + + + | Oxygen Saturation | 96% | 10/31/20181247 PDT | + + + + | Inhaled Oxygen | - | - | | Concentration | | | + + + + | Weight | - | - | + + + + | Height | - | - | + + + + | Body Mass Index | - | - | + + + + documented in this encounter Progress Notes Sadie Borden MD - 10/31/2018 1300 PDT Procedure Note Name:YARITZA HURLEY Pre-op Diagnosis: ESRD on HD Post-op Diagnosis: Same Title of Procedure: Removal of tunneled hemodialysis Indications: Soumya has a functioning AV fistula and is no longer in catheter. So she is here today for removal of the catheter. Findings: Tunneled hemodialysis catheter removed completely intact. Procedure: Patient was placed in the supine position on the procedure table. The nylon sutures attach ing the catheter to the skin were removed. The area was prepped and draped in the usual zac rile fashion around the catheter exit site. Local anesthetic was injected around the operat solis area. The cuff was bluntly dissected free from the surrounding subcutaneous tissue. Wh ile holding pressure on the right internal jugular vein, the catheter was removed and noted to be entirely intact. Pressure was held on the right internal jugular vein site for 15 min utes. Folded 4 x 4 and Tegaderm dressing were placed over the catheter exit site. Patient tolerated the procedure well. EBL: 2cc Follow-up care instructions explained to patient and written instructions sent with patient . Sadie Borden MD Portions of this chart may have been created with [employer] voice recognition software. Occasi onal wrong-word or sound-alike substitutions may have occurred due to the inherent olivares itations of voice recognition software. Please read the chart carefully and recognize, using context, where these substitutions have occurred. documented in this encount er Plan of Treatment +--------+ + + + + | Date | Type | Specialty | Care Team | Description | +--------+ + + + + | 12/02/ | Off-Site | Nephrology | Jerad Ratliff | | | 2018 | Visit | | DO Jon [address] [place] [address] | | | | | | [address] | | | | | | [place], [place] | | | | | | [id number] | | | | | | | | +--------+ + + + + documented as of this encounter Procedures + +--------+ + + + | Procedure Name | Priori | Date/Time | Associated Diagnosis | Comments | | | ty | | | | + +--------+ + + + | AMB REFERRAL TO [facility] | Routin | 10/31/2018 | CKD (chronic | | | [facility] | e | 14:16 PDT | kidney disease) | | | SURGERY | | | stage 5, GFR less | | | | | | than 15 ml/min ([facility]) | | + +--------+ + + + documented in this encounter Visit Diagnoses + + | Diagnosis | + + | CKD (chronic kidney disease) stage 5, GFR less than 15 ml/min ([facility]) Chronic kidney | | disease, Stage V | + + documented in this encounter Administered Medications + + + +-------+------+ + | Medication Order | MAR | Action | Dose | Rate | Site | | | Action | Date | | | | + + + +-------+------+ + | lidocaine 1%-EPINEPHrine | Given by | 11/01/19 | 8 mLs | | Surgical | | 1:100,000 injection 8 mL 8 mL, | Other | 19 14:07 | | | Site | | Infiltration, ONCE, [facility] 10/31/18 | | PDT | | | | | at 1430, For 1 dose | | | | | | + + + +-------+------+ + +---+---+ | | | +---+---+ documented in this encounter"
--- OUTSIDE RECORDS SUMMARY | ~2018-11-25 | XMS | Encounter Summary ---
Demographics + + + | Address | [address] | | | [place] [address] | + + + | Home Phone | | + + + | Preferred Language | Unknown | + + + | Marital Status | | + + + | Restoration Affiliation | 1013 | + + + | Race | Unknown | + + + | Ethnic Group | Unknown | + + + Author + + + | Author | [facility] | | | and [place] | + + + | Organization | [facility] | | | and [...] Team Providers + +------+ + | Care Model Engine Mechanic Name | Role | Phone | + [...] | disease) | [place] | [place] [address] | | | | | stage 5, GFR | [address] | Phone: | | | | | less than | Phone: | [phone] | | | | | 15 ml/min | [phone] | Fax: | | | | | (HCC) | Fax: | [phone] | | | | | | [phone] | | +--------+ + + + + + Encounter Details +--------+ + + + + | Date | Type | Department | Care Team | Description | +--------+ + + + + | 10/18/ | Orders Only | [facility] | Sadie Borden MD | CKD (chronic kidney | | 2019 | | SURGERY [address] | [address] [facility] | disease) stage 5, | | | | [place], [place] | [place] [address] | GFR less than 15 | | | | [address] | [phone] | ml/min (HCC) | | | | [phone] | | (Primary Dx) | +--------+ + [...] [place] | | | | | | [address] | | | | | | | | +--------+ + + + + documented as of this encounter Visit Diagnoses + + | Diagnosis | + + | CKD (chronic kidney disease) stage 5, GFR less than 15 ml/min ([facility]) - Primary Chronic | | kidney disease, Stage V | + + documented in this encounter"
--- OUTSIDE RECORDS SUMMARY | ~2018-11-25 | XMS | Clinical Summary ---
Demographics + + + | Address | [address] | | | [place] [address] | + + + | Home Phone | | + + + | Preferred Language | Unknown | + + + | Marital Status | Single | + + + | Confucianist Affiliation | Unknown | + + + | Race | Unknown | + + + | Ethnic Group | Other Race | + + + Author + + + | Author | NON REVENUE LOCATIONS | + + + | Organization | NON REVENUE LOCATIONS | + + + | Address | Unknown | + + + | Phone | Unavailable | + + + Care Team Providers + +------+ + | Care Machine Operations Supervisor Name | Role | Phone | + +------+ + | Meron Fritz MD | PP | | + +------+ + Source Comments [facility] is fully live on both EpicCare Ambulatory and EpicCare InPatient.[facility] Allergies + + + + + + | Active Allergy | Reactions | Severity | Noted | Comments | | | | | Date | | + + + + + + | Codeine | Nausea | | 01/12/20 | | | | | | 11 | | + + + + + + | Penicillins | Edema | | 01/12/20 | | | | | | 11 | | + + + + + + Current Medications + + +-------+---------+------+------+-------+ | Prescription | Sig. | Disp. | Refills | Star | End | Statu | | | | | | t | Date | s | | | | | | Date | | | + + +-------+---------+------+------+-------+ | INSULN ASP | Inject under the | | | | | Activ | | PRT/INSULIN ASPART | skin (SUBC). | | | | | e | | (NOVOLOG MIX 70-30 | | | | | | | | SUBQ) | | | | | | | + + +-------+---------+------+------+-------+ | INSULIN LISPRO | Inject under the | | | | | Activ | | (HUMALOG SUBQ) | skin (SUBC). | | | | | e | + + +-------+---------+------+------+-------+ | diltiazem CD 24 | Take 240 mg by mouth | | | | | Activ | | hour release | once daily. | | | | | e | | (CARDIZEM CD) 240 mg | | | | | | | | Oral Capsule, Ext | | | | | | | | Release 24 hr | | | | | | | + + +-------+---------+------+------+-------+ | metFORMIN | Take 1,000 mg by | | | | | Activ | | (GLUCOPHAGE) 1,000 | mouth two times | | | | | e | | mg Oral Tablet | daily. | | | | | | + + +-------+---------+------+------+-------+ | MULTIVITAMIN ORAL | Take by mouth. | | | | | Activ | | | | | | | | e | + + +-------+---------+------+------+-------+ | OMEGA-3 FATTY | Take by mouth. | | | | | Activ | | ACIDS/FISH OIL | | | | | | e | | (OMEGA 3 FISH OIL | | | | | | | | ORAL) | | | | | | | + + +-------+---------+------+------+-------+ Active Problems Not on file Social History + +-------+ +--------+------+ | Tobacco Use | Types | Packs/Day | Years | Date | | | | | Used | | + +-------+ +--------+------+ | Never Smoker | | | | | + +-------+ +--------+------+ + + + | Sex Assigned at | Date Recorded | | | | + + + | Not on file | | + + + Last Filed Vital Signs + + + + | Vital Sign | Reading | Time Taken | + + + + | Blood Pressure | 148/76 | 01/11/2011 9:54 AM PDT | + + + + | Pulse | 91 | 01/11/2011 9:54 AM PDT | + + + + | Temperature | 36.4 C (97.5 F) | 01/11/2011 9:54 AM PDT | + + + + | Respiratory Rate | 16 | 01/11/2011 9:54 AM PDT | + + + + | Oxygen Saturation | 91% | 01/11/2011 9:54 AM PDT | + + + + | Inhaled Oxygen | - | - | | Concentration | | | + + + + | Weight | 130.5 kg (287 lb | 01/11/2011 9:54 AM PDT | | | 12.8 oz) | | + + + + | Height | 157.5 cm (5' 2") | 01/11/2011 9:54 AM PDT | + + + + | Body Mass Index | 52.64 | 01/11/2011 9:54 AM PDT | + + + + Plan of Treatment + + + + + | Health Maintenance | Due Date | Last Done | Comments | + + + + + | Influenza (Flu) | | | | | vaccination (#1) | 8 | | | + + + + + Results Not on filefrom Last 3 Months Insurance +-------+--------+ +--------+ + + | Payer | Benefi | Subscriber | Type | Phone | Address | | | t Plan | ID | | | | | | / | | | | | | | Group | | | | | +-------+--------+ +--------+ + + | MAXIME | MAXIME | [id number] | Worker | | | | | | | s Comp | | | +-------+--------+ +--------+ + + | SAIF | SAIF | [id number] | Worker | [phone] | [address] | | | | | s Comp | [address] | [place] [address] | +-------+--------+ +--------+ + + + +--------+ +--------+ + + | Guarantor Name | Accoun | Relation to | Date | Phone | Billing Address | | | t Type | Patient | of | | | | | | | | | | + +--------+ +--------+ + + | YARITZA HURLEY | Person | Self [birth year] | Home: | [address] | | | al/Fam | | 1955 | [phone] | [place] [address] | | | arnold | | | [address] | | + +--------+ +--------+ + + | YARITZA HURLEY | Worker | Self | [birth year] | Home: | [address] | | | s Comp | | 1955 | [phone] | [place] [address] | | | | | | [address] | | + +--------+ +--------+ + + | YARITZA HURLEY | Worker | Self | [birth year] | Home: | [address] | | | s Comp | | 1955 | [phone] | [place] [address] | | | | | | [address] | | + +--------+ +--------+ + +
--- OUTSIDE RECORDS SUMMARY | ~2018-11-25 | XMS | Clinical Summary ---
Demographics + + + | Address | [address] | | | [place] [address] | + + + | Home Phone | | + + + | Preferred Language | Unknown | + + + | Marital Status | | + + + | Methodist Affiliation | 1013 | + + + | Race | Unknown | + + + | Ethnic Group | Unknown | + + + Author + + + | Author | [facility] | | | and [place] | + + + | Organization | [facility] | | | and [place] [...] Team Providers + +------+ + | Care Wide Area Network Systems Administrator Name | Role | Phone | + +------+ + | Anival Dietz MD | PP | | + +------+ + Allergies + + + + + + | Active Allergy | Reactions | Severity | Noted | Comments | | | | | Date | | + + + + + + | Adhesive & Tape | Itching | Low | 07/22/20 | | | | | | 18 | | + + + + + + | Atorvastatin | Nausea Only | Low | 04/06/20 | Doesn | | | | | 15 | | + + + + + + | Codeine | Nausea And Vomiting | Medium | 05/29/20 | | | | | | 12 | | + + + + + + | Penicillins | Swelling | Medium | 05/29/20 | Arm it was given | | | | | 12 | in swelled up | + + + + + + | Pravastatin | Nausea Only | Low | 04/06/20 | | | | | | 15 | | + + + + + + Medications + + + +---------+------+------+-------+ | Medication | Sig | Dispensed | Refills | Star | End | Statu | | | | | | t | Date | s | | | | | | Date | | | + + + +---------+------+------+-------+ | Timolol Maleate | Apply 1 drop to eye | | 0 | | | Activ | | (ISTALOL) 0.5 % | Daily. | | | | | e | | (DAILY) SOLN | | | | | | | + + + +---------+------+------+-------+ | HUMULIN R U-500 | 100 u in the AM and | | 0 | 10/2 | | Activ | | KWIKPEN 500 UNIT/ML | 80 u in the PM | | | 6/20 | | e | | concentrated | | | | 17 | | | | injection (pen) | | | | | | | + + + +---------+------+------+-------+ | insulin pen needle | by Other route as | | 0 | | | Activ | | (B-D ULTRAFINE III | needed for Other. | | | | | e | | SHORT PEN) 31 gauge | | | | | | | | x 8 mm | | | | | | | + + + +---------+------+------+-------+ | Cholecalciferol | Take 1,000 Units by | | 0 | | | Activ | | (VITAMIN D PO) | mouth Daily. | | | | | e | + + + +---------+------+------+-------+ | dilTIAZem (CARTIA | Take 1 capsule by | 90 | 3 | 09/ | | Activ | | XT) 240 MG 24 hr | mouth Daily. | capsule | | 0/20 | | e | | capsule | | | | 18 | | | + + + +---------+------+------+-------+ | cloNIDine | Take 1 tablet by | 180 | 3 | 04/06 | | Activ | | (CATAPRES) 0.2 MG | mouth 2 times daily. | tablet | | 0/20 | | e | | tablet | | | | 18 | | | + + + +---------+------+------+-------+ | b complex-vitamin | Take 1 tablet by | 90 | 3 | 06/06 | | Activ | | c-folic acid | mouth Daily. | tablet | | 04/25 | | e | | (NEPHRO-CALIN) tablet | | | | 18 | | | + + + +---------+------+------+-------+ | gentamicin 0.1% | Apply topically | 30 g | 0 | 1 | | Activ | | cream | Three times a week. | | | 9/20 | | e | | | Bring to dialysis | | | 18 | | | | | clinic | | | | | | + + + +---------+------+------+-------+ | hydrALAZINE | Take 1 tablet by | 60 | 11 | 11/1 | | Activ | | (APRESOLINE) 50 MG | mouth 2 times daily. | tablet | | 9/20 | | e | | tablet | | | | 18 | | | + + + +---------+------+------+-------+ | dulaglutide | Inject 1.5 mg under | | 0 | | | Activ | | (TRULICITY) 1.5 | the skin Once a | | | | | e | | mg/0.5 mL injection | week. | | | | | | + + + +---------+------+------+-------+ | desonide (DESOWEN) | Apply topically 2 | | 0 | | | Activ | | 0.05% cream | times daily. | | | | | e | + + + +---------+------+------+-------+ | benzonatate | Take 200 mg by mouth | | 0 | 12/0 | | Activ | | (TESSALON) 200 MG | Twice daily as | | | 3/20 | | e | | capsule | needed. | | | 18 | | | + + + +---------+------+------+-------+ | Blood Glucose | | | 0 | 12/0 | | Activ | | Monitoring Suppl | | | | 6/20 | | e | | (CONTOUR NEXT | | | | 18 | | | | MONITOR) w/Device | | | | | | | | KIT | | | | | | | + + + +---------+------+------+-------+ | CONTOUR NEXT TEST | | | 0 | 12/0 | | Activ | | strip | | | | 6/20 | | e | | | | | | 18 | | | + + + +---------+------+------+-------+ | TAWANA MICROLET | | | 0 | 12/0 | | Activ | | LANCETS MISC | | | | 5/20 | | e | | | | | | 18 | | | + + + +---------+------+------+-------+ | doxercalciferol | Inject 1 mcg into | | 0 | | | Activ | | (HECTOROL) 2 mcg/mL | the vein Three times | | | | | e | | injection | a week. | | | | | | + + + +---------+------+------+-------+ | epoetin brendan | Inject 4,000 Units | | 0 | | | Activ | | (EPOGEN,PROCRIT) | under the skin Three | | | | | e | | 3,000 units/mL | times a week. | | | | | | | injection | | | | | | | + + + +---------+------+------+-------+ | VELPHORO 500 MG | | | 0 | 01/1 | | Activ | | chewable tablet | | | | 1/20 | | e | | | | | | 19 | | | + + + +---------+------+------+-------+ | lisinopril | Take 1 tablet by | 60 | 5 | 02/1 | | Activ | | (PRINIVIL, ZESTRIL) | mouth Daily. | tablet | | 8/20 | | e | | 10 mg tablet | | | | 19 | | | + + + +---------+------+------+-------+ | | | | 0 | 03/0 | | Activ | | lidocaine-prilocaine | | | | 8/20 | | e | | (EMLA) cream | | | | 19 | | | + + + +---------+------+------+-------+ | traMADol (ULTRAM) | Take 1 tablet by | 20 | 0 | 12/2 | 03/2 | Disco | | 50 mg tablet | mouth every 8 hours | tablet | | 0/20 | 8/20 | ntinu | | | as needed. | | | 18 | 19 | ed | + + + +---------+------+------+-------+ | timolol maleate | | | 0 | 01/2 | 03/2 | Disco | | (TIMOPTIC) 0.5% | | | | 5/20 | 8/20 | ntinu | | ophthalmic solution | | | | 19 | 19 | ed | + + + +---------+------+------+-------+ + + + + +------+------+-------+ | Hospital, Clinic, or | Ordered | Route | Frequency | Star | End | Statu | | Other Facility | Dose | | | t | Date | s | | Administered | | | | Date | | | | Medication | | | | | | | + + + + +------+------+-------+ | lidocaine | 8 mL | INFILTRA | ONCE | 03/2 | 03/2 | Ended | | 1%-EPINEPHrine | | TION | | 8/20 | 8/20 | | | 1:100,000 injection | | | | 19 | 19 | | | 8 mL | | | | | | | + + + + +------+------+-------+ Active Problems + + + | Problem | Noted Date | + + + | Hemodialysis patient (Joe) | 07/25/2018 | + + + + + | Overview: mon-wed-fri | + + + + + | Morbid obesity with BMI of 50.0-59.9, adult | 06/14/2018 | + + + | Elevated hemoglobin A1c | 06/14/2018 | + + + | ESRD (end stage renal disease) | 06/14/2018 | + + + | Nocturnal hypoxemia | 06/14/2018 | + + + | Hemodialysis catheter infection | 06/13/2018 | + + + | Anemia in chronic kidney disease | 06/06/2017 | + + + | Secondary hyperparathyroidism | 06/06/2017 | + + + | CKD (chronic kidney disease) stage 5, GFR less than 15 ml/min | 10/12/2015 | + + + + + | Overview: GFR 16 - 08/03/2016 | | GFR - 05/29/2017 | | GFR - 11/21/2017 | | GFR - 05/28/2018 | + + + + + | Diabetes mellitus, type II, INSULIN & ORAL Dependent | 05/25/2015 | + + + | Diabetic retinopathy | 05/25/2015 | + + + | Proteinuria | 05/25/2015 | + + + | Hyperlipidemia | 05/25/2015 | + + + | Obesity | 05/25/2015 | + + + | Obstructive sleep apnea on CPAP | 05/29/2012 | + + + + + | Overview: On CPAP | + + + +---+ | Hypertension | | + +---+ + + | Overview: Diagnosed ~2005 | + + + +---+ | Metabolic acidosis | | + +---+ | Asthma | | + +---+ | Diabetic macular edema of both eyes | | + +---+ | Glaucoma | | + +---+ | Psoriasis | | + +---+ | Vitamin D deficiency | | + +---+ | Bilateral lower extremity edema | | + +---+ | Folliculitis | | + +---+ | Gait instability | | + +---+ | Greater trochanteric bursitis of right hip | | + +---+ | Hypoxemia requiring supplemental oxygen | | + +---+ | Insulin dependent diabetes mellitus | | + +---+ | Lesion of neck | | + +---+ | Seborrheic keratosis | | + +---+ | Chondrodermatitis nodularis chronica helicis | | + +---+ | Acute pharyngitis | | + +---+ | Right hip pain | | + +---+ Encounters +--------+ + + + + | Date | Type | Specialty | Care Team | Description | +--------+ + + + + | 10/31/ | Procedure | | Sadie Borden MD | CKD (chronic kidney | | 2018 | visit | | | disease) stage 5, | | | | | | GFR less than 15 | | | | | | ml/min ([facility]) | +--------+ + + + + | 10/18/ | Orders Only | | Sadie Borden MD | CKD (chronic kidney | | 2018 | | | | disease) stage 5, | | | | | | GFR less than 15 | | | | | | ml/min ([facility]) | | | | | | (Primary Dx) | +--------+ + + + + | 10/10/ | Office | | Suman Stephens | CKD (chronic kidney | | 2018 | Visit | | MD Jones FACS | disease) stage 5, | | | | | | GFR less than 15 | | | | | | ml/min ([facility]) | | | | | | (Primary Dx); | | | | | | Post-operative state | +--------+ + + + + | 10/10/ | Abstract | | Jaida Yoo, | | | 2018 | | | | | +--------+ + + + + | 09/23/ | Off-Site | | Jerad Ratliff | ESRD (end stage | | 2018 | Visit | | DO Jon | renal disease) ([facility]) | | | | | | (Primary Dx) | +--------+ + + + + | 09/19/ | Office | | Suman Stephens | CKD (chronic kidney | | 2019 | Visit | | MD Jones FACS | disease) stage 5, | | | | | | GFR less than 15 | | | | | | ml/min ([facility]) | | | | | | (Primary Dx); | | | | | | Post-operative state | +--------+ + + + + | 09/19/ | Documentati | | Jaida Yoo, | | | 2018 | on | | | | +--------+ + + + + | 09/18/ | Telephone | | Jaida Yoo, | Disability Issues | | 2018 | | | MD | | +--------+ + + + + | 09/12/ | Telephone | | Jaida Yoo, | Other | | 2018 | | | MD | | +--------+ + + + + from Last 3 Months Immunizations + + + + | Name | Dates Previously Given | Next Due | + + + + | INFLUENZA, [id number], | 05/06/2009 | | | UNSPECIFIED | | | + + + + | INFLUENZA, | 05/06/2009 | | | UNSPECIFIED | | | | FORMULATION | | | + + + + | PNEUMOCOCCAL | 07/12/2018 | | | POLYSACCHARIDE | | | | 23-VALENT (PPSV23) | | | + + + + | PPD Test | 06/17/2018 | | + + + + Family History + + +---------+ + | Medical History | Relation | Name | Comments | + + +---------+ + | Other (see comment) | | Durane | Neurodegenerative disease | + + +---------+ + | Diabetes | Brother | | | + + +---------+ + | Breast cancer | Maternal | | | | | Grandmoth | | | | | er | | | + + +---------+ + | Coronary artery | Other | | | | disease | | | | + + +---------+ + | Diabetes | Other | | | + + +---------+ + | Rashes / skin | Paternal | | | | problems | Grandfath | | | | | er | | | + + +---------+ + | Ovarian cancer | Sister | Brooke | | + + +---------+ + | Stomach cancer | Sister | Dianna | | + + +---------+ + | Cancer | Sister | Lisa | | + + +---------+ + | Kidney disease | Neg Hx | | | + + +---------+ + + +---------+ + + | Relation | Name | Status | Comments | + +---------+ + + | Brother | Laddie | | complications of paralysis | | | | (Age | | | | | 76) | | + +---------+ + + | Brother | | Alive | | + +---------+ + + | Brother | | Alive | | + +---------+ + + | Brother | | | accident | | | | (Age | | | | | 2) | | + +---------+ + + | Brother | | Alive | | + +---------+ + + | Father | | | CHF | | | | (Age | | | | | 98) | | + +---------+ + + | Maternal Grandmother | | | | + +---------+ + + | Mother | | | CHF | | | | (Age | | | | | 86) | | + +---------+ + + | Other | | | | + +---------+ + + | Paternal Grandfather | | | | + +---------+ + + | Sister | | Alive | | + +---------+ + + | Sister | | | Stomach cancer | | | | (Age | | | | | 30s) | | + +---------+ + + | Sister | | | ovarian cancer | | | | (Age | | | | | 42) | | + +---------+ + + | Sister | | | | + +---------+ + + | Sister | | Alive | | + +---------+ + + | Sister | | Alive | | + +---------+ + + | Sister | Brooke | | | + +---------+ + + | Sister | Dianna | | | + +---------+ + + | Sister | Lisa | | | + +---------+ + + Social History + +-------+ +--------+------+ [...] recent travel history available. | + + Last Filed Vital Signs + [...] Weight | 129.3 kg (285 lb) | 10/10/2018954 PST | + + + + | Height | 154.9 cm (5' 1") | 10/10/2018954 PST | + + + + | Body Mass Index | 53.85 | 10/10/2018954 PST | + + + + Plan of Treatment +--------+ + + + + | Date | Type | Specialty | Care Team | Description | +--------+ + + + + | 12/02/ | Off-Site | | Jerad Ratliff | | | 2018 | Visit | | [address] | | | | | | [address] | | | | | | [place] | | | | | | [address] | | | | | | | | +--------+ + + + + + + + + + | Health Maintenance | Due Date | Last Done | Comments | + + + + + | Hepatitis C | | | | | Screening | 4 | | | + + + + + | Diabetic Eye Exam | | | | | | 2 | | | + + + + + | Diabetic Foot Exam | | | | | | 2 | | | + + + + + | Vaccine: | | | | | Dtap/Tdap/Td (1 - | 3 | | | | Tdap) | | | | + + + + + | Cervical Cancer | | | | | Screening (Pap) | 4 | | | + + + + + | Breast Cancer | | | | | Screening (Ages | 4 | | | | 50-74) | | | | + + + + + | Colorectal Cancer | | | | | Screening | 4 | | | | (Colonoscopy) | | | | + + + + + | Vaccine: Zoster (1 | | | | | of 2) | 4 | | | + + + + + | Hemoglobin A1c | | 03/01/2015, 04/21/2014, | | | Screening | 5 | 07/02/2013, Additional history | | | | | exists | | + + + + + | Vaccine: Influenza | | 05/06/2009, 05/06/2009 | | | (Season Ended) | 9 | | | + + + + + | Vaccine: | | 07/12/2018 | | | Pneumococcal 19-64 | 9 | | | | Highest Risk (2 of 3 | | | | | - PCV13) | | | | + + + + + Procedures + +--------+ + + + | Procedure Name | Priori | Date/Time | Associated Diagnosis | Comments | | | ty | | | | + +--------+ + + + | AMB REFERRAL TO [facility] | Routin | 10/31/2018 | CKD (chronic | | | [facility] | e | 14:16 PDT | kidney disease) | | | SURGERY | | | stage 5, GFR less | | | | | | than 15 ml/min (HCC) | | + +--------+ + + + from Last 3 Months Results Borden surgery (10/31/2018 14:16 PDT)from Last 3 Months Insurance +-------+--------+ +--------+ + +------+ | Payer | Benefi | Subscriber | Effect | Phone | Address | Type | | | t Plan | ID | solis | | | | | | / | | Dates | | | | | | Group | | | | | | +-------+--------+ +--------+ + +------+ | MODA | MODA | [id number] | 04/06/20 | [phone] | [address] | PPO | | | HEALTH | | 18-Pre | 9 | [address] | | | | | | sent | | [facility], | | | | [place] | | | | [place] [address] | | | | [place] | | | | | | +-------+--------+ +--------+ + +------+ + +--------+ +--------+ + + | Guarantor Name | Accoun | Relation to | Date | Phone | Billing Address | | | t Type | Patient | of | | | | | | | | | | + +--------+ +--------+ + + | Yaritza Gusman | Person | Self | [birth year] | [address] | | | al/Fam | | 4 | [phone] | [place] [address] | | | arnold | | | 0 (Home) | | | | | | | [phone] | | | | | | | 8 (Work) | | + +--------+ +--------+ + + Advance Directives Patient has advance care planning documents, and code status on file. For more information, please contact:[facility] [place] [address] + + + + + | Code Status | Date | Date | Comments | | | Activated | Inactivated | | + + + + + | Full Code | 08/15/2018 | 08/15/2018 | | | | 14:56 | 18:11 | | + + + + + + + + +---+ | | | | | + + + +---+ | Full Code | 07/25/2018 | 07/25/2018 | | | | 18:17 | 21:29 | | + + + +---+ + + + +---+ | | | | | + + + +---+ | Full Code | 06/14/2018 | 06/14/2018 | | | | 15:29 | 19:12 | | + + + +---+
--- OUTSIDE RECORDS SUMMARY | ~2018-11-25 | XMS | Encounter Summary ---
Demographics + + + | Address | [address] | | | [place] [address] | + + + | Home Phone | | + + + | Preferred Language | Unknown | + + + | Marital Status | | + + + | Caodaism Affiliation | 1013 | + + + | Race | Unknown | + + + | Ethnic Group | Unknown | + + + Author + + + | Author | [facility] | | | and [place] | + + + | Organization | [facility] | | | and [place] [...] Team Providers + +------+ + | Care Cracking Still Operator Name | Role | Phone | + [...] End stage | Jaida Aggarwal, | Suman oJnes, | | | Required | Surgery | renal | [address] | , [address] | | | | | disease | [place] [address] | [address] | | | | | ([facility]) | [address] | [place], | | | | | | [place] | [place] [address] | | | | | | [address] | Phone: | | | | | | Phone: | [phone] | | | | | | [phone] | Fax: | | | | | | Fax: | [phone] | | | | | | [phone] | | + + + + + + + Encounter Details +--------+---------+ + + + | Date | Type | Department | Care Team | Description | +--------+---------+ + + + | 09/19/ | Office | [facility] | Suman Stephens | CKD (chronic kidney | | 2019 | Visit | SURGERY [address] | MD Karen, FACS [address] | disease) stage 5, | | | | [place], [place] | [facility] | GFR less than 15 | | | | [address] | [place] [address] | ml/min (HCC) | | | | [phone] | [phone] | (Primary Dx); | | | | [...] 05/25/2015 Diabetic macular edema of both eyes ([facility]) Elevated hemoglobin A1c 06/14/2018 ESRD (end stage renal disease) ([facility]) Folliculitis Gait instability Glaucoma Greater trochanteric bursitis of right hip Hemodialysis patient ([facility]) sun- Hyperlipemia Hypertension Diagnosed ~2004 Hypoxemia requiring supplemental oxygen Influenza pneumonia 1967 Recovered Insulin dependent diabetes mellitus ([facility]) Obesity Obstructive sleep apnea on CPAP 05/29/2012 On CPAP Paroxysmal supraventricular tachycardia ([facility]) PONV (postoperative nausea and vomiting) Proteinuria Psoriasis Seborrheic keratosis Shoulder fracture 2011 Currently healing - from fall at work Vitamin D deficiency Wears partial dentures Past Surgical History: Procedure Laterality Date ABCESS DRAINAGE 1980 right arm AV FISTULA INSERTION Right 07/25/2018 Procedure: INSERTION AV FISTULA; Surgeon: Suman Stephens MD, FACS; Location: [facility] HAO N OR CATARACT REMOVAL 2014 bilateral Insertion of tunneled central venous catheter 06/04/2018 without subcutaneous port or pump: Dr. Jose Youssef, [facility] KNEE ARTHROSCOPY 2009 left knee SHUNT PLACEMENT/INSERTION N/A 06/14/2018 Procedure: TUNNEL HEMODIALYSIS CATHETER; Surgeon: Sadie Borden MD; Location: [facility] MAIN O R TONSILLECTOMY AND ADENOIDECTOMY 1958 VEIN SURGERY Right 08/15/2018 Procedure: RIGHT arm-translocation cephalic vein; Surgeon: Suman Stephens MD, FACS; Location: [facility] MAIN OR Allergies Allergen Reactions Codeine [...] REPORT: PATIENT NAME : Yaritza Gusman EQUIPMENT: SonBoatsGote M-Turbo with 10-5 mHertz probe. INDICATIONS: S/P RIGHT arm translocation of cephalic vein FINDING: RIGHT cephalic vein measures 7.7 mm and is 3.1 mm deep to the skin. Upper arm is 6.7 mm wide and 3.0 mm deep to the skin. IMPRESSION: Functioning AV fistula. Assessment 1. CKD (chronic kidney disease) stage 5, GFR less than 15 ml/min ([facility]) 2. Post-operative state Plan 1. [...] | Visit | | DO Jon [address] | | | | | | [address] | | | | | | [place] | | | | | | [address] | | | | | | | | +--------+ + + + + documented as of this encounter Visit Diagnoses + + | Diagnosis | + + | CKD (chronic kidney disease) stage 5, GFR less than 15 ml/min ([facility]) - Primary Chronic | | kidney disease, Stage V | + + | Post-operative state Other postprocedural status | + + documented in this encounter
--- OUTSIDE RECORDS SUMMARY | ~2018-11-25 | XMS | Encounter Summary ---
Demographics + + + | Address | [address] | | | [place] [address] | + + + | Home Phone | | + + + | Preferred Language | Unknown | + + + | Marital Status | | + + + | Religion Affiliation | 1013 | + + + | Race | Unknown | + + + | Ethnic Group | Unknown | + + + Author + + + | Author | [facility] | | | and [place] | + + + | Organization | [facility] | | | and [...] Team Providers + +------+ + | Care Furs Salesperson Name | Role | Phone | + +------+ + | nAival Dietz MD | PCP | | + +------+ + Reason for Visit + + + | Reason | Comments | + + + | Disability Issues | | + + + Encounter Details +--------+ + + + + | Date | Type | Department | Care Team | Description | +--------+ + + + + | 09/18/ | Telephone | [facility] | Jaida Yoo W, | Disability Issues | | 2019 | | NEPHROLOGY [address] | [address] | | | | | [address] | [address] | | | | | [place], [place] | [place] [address] | | | | | [address] | [phone] | | | | | [phone] | | | +--------+ + + + [...] 2018 | Visit | | [address] | | | | | | [address] [facility] | | | | | | [place] | | | | | | [address] | | | | | | | | +--------+ + + + + documented as of this encounter Visit Diagnoses Not on filedocumented in this encounter"
--- OUTSIDE RECORDS SUMMARY | ~2018-11-25 | XMS | Encounter Summary ---
Demographics + + + | Address | [address] | | | [place] [address] | + + + | Home Phone | | + + + | Preferred Language | Unknown | + + + | Marital Status | | + + + | Lutheran Affiliation | 1013 | + + + | Race | Unknown | + + + | Ethnic Group | Unknown | + + + Author + + + | Author | [facility] | | | and [place] | + + + | Organization | [facility] | | [...] Team Providers + +------+ + | Care Site Interpreter Name | Role | Phone | + [...] NEPHROLOGY [address] | MD [address] | | | | | [address] | [address] | | | | | [place] | [place] [address] | | | | | [address] | [phone] | | | | | [phone] | | | +--------+ + + + [...] [place] | | | | | | [address] | | | | | | | | +--------+ + + + + documented as of this encounter Visit Diagnoses Not on filedocumented in this encounter"
--- OUTSIDE RECORDS SUMMARY | ~2018-11-25 | XMS | Clinical Summary ---
Demographics + + + | Address | [address] | | | [place] [address] | + + + | Home Phone | | + + + | Preferred Language | Unknown | + + + | Marital Status | Single | + + + | Samaritan Affiliation | Unknown | + + + [...] Team Providers + +------+ + | Care Honing Machine Operator Production Name | Role | Phone | + +------+ + | Meron Fritz MD | PP | | + +------+ + Source Comments BARNEY is fully live on both EpicCare Ambulatory and EpicCare InPatient.[facility]erg[facility] + + + + + + [...] s Comp | [address] | [place] [address] | +-------+--------+ +--------+ + + + +--------+ [...] | 1955 | [phone] | [place] [address] | | | [place] | | | [address] | | + +--------+ +--------+ + + | YARITZA HURLEY | Worker | Self | [birth year] | Home: | [address] | | | s Comp | | 1955 | [phone] | [place] [address] | | | | | | [address] | | + +--------+ +--------+ + + | YARITZA HURLEY | Worker | Self | [birth year] | Home: | [address] | | | s Comp | | 1955 | [phone] | [place] [address] | | | | | | [address] | | + +--------+ +--------+ + +
--- OUTSIDE RECORDS SUMMARY | ~2018-11-25 | XMS | Encounter Summary ---
Demographics + + + | Address | [address] | | | [place] [address] | + + + | Home Phone | | + + + | Preferred Language | Unknown | + + + | Marital Status | | + + + | Yarsanism Affiliation | 1013 | + + + | Race | Unknown | + + + | Ethnic Group | Unknown | + + + Author + + + | Author | [facility] | | | and Dominicana | + + + | Organization | [facility] | | | [...] | | + + +---------+ + | aKtiana Rosado | ECON | Unknown | | + + +---------+ + Care Team Providers + +------+ + | Care Sequins Winder Name | Role | Phone | + [...] | | | | | disease | [place] | [address] | | | | | ([facility]) | [address] [place] | [place], | | | | | | [place], [place] | [place] [address] | | | | | | [address] | Phone: | | | | | | Phone: | [phone] | | | | | | [phone] | Fax: | | | | | | Fax: | [phone] | | | | | | [phone] | | + + + + + + + Encounter Details +--------+---------+ + + + | Date | Type | Department | Care Team | Description | +--------+---------+ + + + | 10/10/ | Office | [facility] | Suman Stephens | CKD (chronic kidney | | 2019 | Visit | SURGERY [address] | MD Karen, FACS [address] | disease) stage 5, | | | | [place], [place] | [facility] | GFR less than 15 | | | | [address] | [place] [address] | ml/min (HCC) | | | | [phone] | [phone] | (Primary Dx); | | | | [...] FISTULA; Surgeon: Suman Stephens MD, FACS; [facility] 2014 bilateral Insertion of tunneled central venous catheter 06/04/2018 without subcutaneous port or pump: Dr. Jose Youssef, [facility] KNEE ARTHROSCOPY 2009 left knee SHUNT PLACEMENT/INSERTION N/A 06/14/2018 Procedure: TUNNEL HEMODIALYSIS CATHETER; Surgeon: Sadie Borden MD; Location: [facility] MAIN O R TONSILLECTOMY AND ADENOIDECTOMY 9 VEIN SURGERY Right 08/15/2018 Procedure: RIGHT arm-translocation cephalic vein; Surgeon: Suman Stephens MD, FACS; Location: [facility] MAIN OR Allergies Allergen Reactions [...] REPORT: PATIENT NAME : Yaritza Gusman EQUIPMENT: SonRentColumn Communicationste M-Turbo with 10-5 mHertz probe. INDICATIONS: S/P RIGHT arm translocation of cephalic vein FINDING: RIGHT cephalic vein measures 7.4 mm and 2 mm deep to the skin towards elbow cephalic is 8.2 mm and 3.1 mm deep to skin. Good flow is present. IMPRESSION: Functioning well RIGHT Av. Fistula. Assessment 1. CKD (chronic kidney disease) stage 5, GFR less than 15 ml/min ([facility]) 2. Post-operative state Plan 1. S/P RIGHT arm translocation of cephalic vein Healing well. Will give Okay to start using RIGHT AV. Fistula starting Sunday10/11/2018. She is interested in a prescription for numbing medicine, recommend she discuss this with [facility] lunchroom aide or the dialysis center. Informed patient after three successful uses of RIGHT AV Fistula would then consider RIGHT tunneled IJ catheter removal. Patient to resume diet and activities as tolerated. Patient to continue to follow with [facility] lunchroom aide and primary care. I will be available [...] | Visit | | DO Jon [address] | | | | | | [place], [address] | | | | | | [place] | | | | | | [address] | | | | | | | | +--------+ + + + + documented as of this encounter Visit Diagnoses + + | Diagnosis | + + | CKD (chronic kidney disease) stage 5, GFR less than 15 ml/min ([facility]) - Primary Chronic | | kidney disease, Stage V | + + | Post-operative state Other postprocedural status | + + documented in this encounter
--- OUTSIDE RECORDS SUMMARY | ~2018-11-25 | XMS | Encounter Summary ---
Demographics + + + | Address | [address] | | | [place] [address] | + + + | Home Phone | | + + + | Preferred Language | Unknown | + + + | Marital Status | | + + + | Yazidi Affiliation | 1013 | + + + | Race | Unknown | + + + | Ethnic Group | Unknown | + + + Author + + + | Author | [facility] | | | and Dominicana | + + + | Organization | [facility] | | | and [...] Team Providers + +------+ + | Care Phthalic Acid Purifier Name | Role | Phone | + [...] | NEPHROLOGY [address] | | | | | [address] | [address] [place] | | | | | [place], [place] | [place] [address] | | | | | [address] | [phone] | | | | | [phone] | | | +--------+ + + + [...] 09/19/2018 1256 PSTManually faxed FMLA papers from [facility] [employer] to: Teressa Cosme, weather strip mechanic at ([phone]) [phone]. Sent original copy to scan. documented in [...] [place] | | | | | | [address] | | | | | | | | +--------+ + + + + documented as of this encounter Visit Diagnoses Not on filedocumented in this encounter"
--- OUTSIDE RECORDS SUMMARY | ~2018-11-25 | XMS | Encounter Summary ---
Demographics + + + | Address | [address] | | | [place] [address] | + + + | Home Phone | | + + + | Preferred Language | Unknown | + + + | Marital Status | | + + + | Restoration Affiliation | 1013 | + + + | Race | Unknown | + + + | Ethnic Group | Unknown | + + + Author + + + | Author | [facility] | | | and Dominicana | + + + | Organization | [facility] | | | and Dominicana [...] Team Providers + +------+ + | Care Cost Accountant Name | Role | Phone | + [...] + + | 09/18/ | Telephone | [facility] | Jaida Yoo W, | Disability Issues | | 2019 | | NEPHROLOGY [address] | | | | | [address] | [address] [place] | | | | | [place], [place] | [facility] [place] [address] | | | | | [address] | [phone] | | | | | [phone] | | | +--------+ + + + [...] 2018 | Visit | | Jon [address] | | | | | | [place] [facility] | | | | | | [place] | | | | | | [address] | | | | | | | | +--------+ + + + + documented as of this encounter Visit Diagnoses Not on filedocumented in this encounter"
--- OUTSIDE RECORDS SUMMARY | ~2018-11-25 | XMS | Clinical Summary ---
Demographics + + + | Address | [address] | | | [place] [address] | + + + | Home Phone | | + + + | Preferred Language | Unknown | + + + | Marital Status | | + + + | Hinduism Affiliation | 1013 | + + + | Race | Unknown | + + + | Ethnic Group | Unknown | + + + Author + + + | Author | [facility] | | | and Dominicana | + + + | Organization | [facility] | | | and Dominicana [...] Team Providers + +------+ + | Care Armored Vehicle Officer Name | Role | Phone | + [...] | | | | | | ml/min ([facility]) | +--------+ + + + + | 10/18/ | Orders Only | | Sadie Borden MD | CKD (chronic kidney | | 2018 | | | | disease) stage 5, | | | | | | GFR less than 15 | | | | | | ml/min ([facility]) | | | | | | (Primary Dx) | +--------+ + + + + | 10/10/ | Office | | Suman Stephens | CKD (chronic kidney | | 2018 | Visit | | MD Jones FACS | disease) stage 5, | | | | | | GFR less than 15 | | | | | | ml/min ([facility]) | | | | | [...] | | DO Jon | renal disease) ([facility]) | | | | | | (Primary Dx) | +--------+ + + + + | 09/19/ | Office | | Suman Stephens | CKD (chronic kidney | | 2019 | Visit | | MD Jones FACS | disease) stage 5, | | | | | | GFR less than 15 | | | | | | ml/min ([facility]) | | | | | [...] | + + + + | INFLUENZA, [id number], | 05/06/2009 | | | UNSPECIFIED | [...] 2018 | Visit | | Jon [address] | | | | | | [address] | | | | | | [place] | | | | | | [address] | | | | | | | [...] + + + | AMB REFERRAL TO [facility] | Routin | [...] + +------+ | MODA | MODA | [id number] | 04/06/20 | [phone] | [address] | PPO | | | HEALTH | | 18-Pre | 9 | [address] | | | | | | sent | | [facility], | | | | [place] | | | | [place] [address] | | | | [place] | | | | | | +-------+--------+ +--------+ + +------+ + +--------+ +--------+ + + | Guarantor Name | Accoun | Relation to | Date | Phone | Billing Address | | | t Type | Patient | of | | | | | | | | | | + +--------+ +--------+ + + | Yaritza uGsman | Person | Self | [birth year] | [address] | | | al/Fam | | 4 | [phone] | [place] [address] | | | arnold | | | 0 (Home) | | | | | | | [phone] | | | | | | | 8 (Work) | | + +--------+ +--------+ + + Advance Directives Patient has advance care planning documents, and code status on file. For more information, please contact:[facility] [place] [address] + + + + + | Code [...]
--- OUTSIDE RECORDS SUMMARY | ~2018-11-25 | XMS | Encounter Summary ---
Demographics + + + | Address | [address] | | | [place] [address] | + + + | Home Phone | | + + + | Preferred Language | Unknown | + + + | Marital Status | | + + + | Restorationist Affiliation | 1013 | + + + | Race | Unknown | + + + | Ethnic Group | Unknown | + + + Author + + + | Author | [facility] | | | and Dominicana | + + + | Organization | [facility] | | | and Dominicana [...] Team Providers + +------+ + | Care Animal Hospital Clerk Name | Role | Phone | + [...] | disease) | [place] | [place] [address] | | | | | stage 5, GFR | [address] | Phone: | | | | | less than | Phone: | [phone] | | | | | 15 ml/min | [phone] | Fax: | | | | | (HCC) | Fax: | [phone] | | | | | | [phone] | | +--------+ + + + + [...] | | | | disease) | [place], [place] | [place] [address] | | | | | stage 5, GFR | [address] | Phone: | | | | | less than | Phone: | [phone] | | | | | 15 ml/min | [phone] | Fax: | | | | | (HCC) | Fax: | [phone] | | | | | | [phone] | | +--------+ + + + + + Encounter Details +--------+ + + + + | Date | Type | Department | Care Team | Description | +--------+ + + + + | 10/31/ | Procedure | [facility] | Sadie Borden MD | CKD (chronic kidney | | 2019 | visit | SURGERY [address] | [address] | disease) stage 5, | | | | [place], [place] | [place] [address] | GFR less than 15 | | | | [address] | [phone] | ml/min (HCC) | | | | [phone] | | | +--------+ + + + [...] this chart may have been created with [employer] voice recognition software. Occasi onal wrong-word or [...] | Visit | | DO Jon [address] [place] [address] | | | | | | [address] | | | | | | [place], [place] | | | | | | [address] | | | | | | | | +--------+ + + + + documented as of this encounter Procedures + +--------+ + + + | Procedure Name | Priori | Date/Time | Associated Diagnosis | Comments | | | ty | | | | + +--------+ + + + | [place] [facility] | Routin | 10/31/2018 | CKD (chronic | | | [facility] | e | 14:16 PDT | kidney disease) | | | SURGERY | | | stage 5, GFR less | | | | | | than 15 ml/min ([facility]) | | + +--------+ + + + documented in this encounter Visit Diagnoses + + | Diagnosis | + + | CKD (chronic kidney disease) stage 5, GFR less than 15 ml/min ([facility]) Chronic kidney | | disease, Stage V [...] | | Site | | Infiltration, ONCE, [facility] 10/31/18 | | PDT | | | | | at 1430, For 1 dose | | | | | | + + + +-------+------+ + +---+---+ | | | +---+---+ documented in this encounter"
[2018-11-25] MEDS ORDERED: ASPIR-TRIN325 MG PO (19:17)
[2018-11-25] MEDS ORDERED: CATAPRES0.2 MG (19:17)
[2018-11-25] MEDS ORDERED: DILTIAZEM 24HR240 M1 PO (19:18)
[2018-11-25] MEDS ORDERED: LISINOPRIL10 MG PO (19:18)
[2018-11-25] MEDS ORDERED: TRULICITY1.5 MG/0.5 SUB-Q (19:19)
[2018-11-25] MEDS ORDERED: RENAL CAPS SOFTG1 MG PO (19:20)
[2018-11-25] MEDS ORDERED: VELPHORO500 MG PO (19:20)
[2018-11-25] MEDS ORDERED: TIMOLOL MALEATE5 M4 OP (19:21)
[2018-11-25] MEDS ORDERED: HUMULIN R500 UNIT/2 SUB-Q (19:22)
== END 2018-11-25 19:54 | disposition home or self-care (01) ==
LOC: ED 18:49
DX: T82.838A Hemorrhage due to vascular prosthetic devices, implants and grafts, initial encounter (principal); I10 Essential (primary) hypertension; E11.9 Type 2 diabetes mellitus without complications; Z88.0 Allergy status to penicillin; Z88.5 Allergy status to narcotic agent; Z79.82 Long term (current) use of aspirin; Z79.899 Other long term (current) drug therapy; Z79.4 Long term (current) use of insulin
CPT/HCPCS: 12001; 99283-25

== ENCOUNTER 2020-06-28 13:24 | Emergency (ER) | payer OTHER, MEDICARE ==
[~2020-06-28] VITALS: Ht 157.5 cm; Wt 126.1 kg
[~2020-06-28 13:24] MED LIST: ASPIR-TRIN325 MG PO; CATAPRES0.2 MG; DILTIAZEM 24HR240 M1 PO; HUMULIN R500 UNIT/2 SUB-Q; LISINOPRIL10 MG PO; RENAL CAPS SOFTG1 MG PO; TIMOLOL MALEATE5 M4 OP; TRULICITY1.5 MG/0.5 SUB-Q; VELPHORO500 MG PO
--- NOTE | 2020-06-29 00:43 | EKG ---
[facility] [address] [place] [address] Signed Sinus tachycardia with premature atrial complexes Low voltage QRS Cannot rule out Anterior infarct , age undetermined Abnormal ECG No previous ECGs available Confirmed by BRYNN GARNICA MD ([id number]) on 06/29/2020 12:42:52 AM Electronically Signed By: BRYNN GARNICA MD 06/29/20 0043 PATIENT NAME: EDGARDO HURLEY Electrocardiogram DATE OF : 53 PHYSICIAN: BRYNN GARNICA MD REPORT #: [id number] REPORT IS CONFIDENTIAL AND NOT TO BE RELEASED WITHOUT AUTHORIZATION
== END 2020-06-28 17:44 | disposition short-term general hospital (02) ==
LOC: ED 13:24
DX: U07.1 COVID-19 (principal); J18.9 Pneumonia, unspecified organism; R09.02 Hypoxemia; I10 Essential (primary) hypertension; E11.9 Type 2 diabetes mellitus without complications; Z88.0 Allergy status to penicillin; Z88.5 Allergy status to narcotic agent; Z79.899 Other long term (current) drug therapy; Z79.82 Long term (current) use of aspirin; Z79.4 Long term (current) use of insulin
CPT/HCPCS: 71045; 80053; 83605; 83735; 83880; 84484; 85025; 93005; 93010; 96374; 99285-25; C9803; J1100; U0003

== ENCOUNTER 2021-08-05 12:39 | Emergency (ER) | payer MEDICARE, BC ==
[~2021-08-05] VITALS: Ht 157.5 cm; Wt 126.1 kg
[~2021-08-05 12:39] MED LIST changes: +ADULT LOW DOSE81 MG PO; -ASPIR-TRIN325 MG PO; +DILTIAZEM 24HR120 MG PO; +GABAPENTIN100 MG PO; +HYDROCODON-ACE1 EA10 PO; +SIMVASTATIN10 MG PO; +TRADJENTA5 MG PO; +WARFARIN SODIU2.5 MG PO
--- OUTSIDE RECORDS SUMMARY | 2021-08-05 12:42 | XMS ---
PreManage Notification: EDGARDO HURLEY Security Membership Sales Advisor Events No recent Security Events currently on file [facility] There are no care providers on record at this time. Alissa has no Care Guidelines for this patient. [place] VISIT COUNT (12 MO.) 1 DUSTIN Ross TOTAL 1 NOTE: Visits indicate total known visits. ED/C VISIT TRACKING (12 MO.) 08/05/2021 12:40 DUSTIN [place] TYPE: Emergency COMPLAINT: - COUGH, LOW O2 SATS, SORE THROAT INPATIENT VISIT TRACKING (12 MO.) 10/15/2020 09:16 [facility] Phillip [place] TYPE: Vascular Surgery DIAGNOSES: - Hyperglycemia, unspecified - End stage renal disease - Shortness of breath - Hyperkalemia - Anemia in chronic kidney disease - Localized edema - Thrombosis due to vascular prosthetic devices, implants and grafts, initial encounter - Pulmonary hypertension, unspecified - Other specified personal risk factors, not elsewhere classified - Hypo-osmolality and hyponatremia - Dependence on renal dialysis [email or web address]
[2021-08-05] MEDS ORDERED: PREDNISONE20 MG PO (15:10)
[2021-08-05] MEDS ORDERED: AZITHROMYCIN500 MG PO (15:10)
== END 2021-08-05 17:29 | disposition home or self-care (01) ==
LOC: ED 12:39
DX: U07.1 COVID-19 (principal); Z23 Encounter for immunization; I10 Essential (primary) hypertension; E11.9 Type 2 diabetes mellitus without complications; Z88.0 Allergy status to penicillin; Z88.5 Allergy status to narcotic agent; Z79.899 Other long term (current) drug therapy; Z79.82 Long term (current) use of aspirin; Z79.4 Long term (current) use of insulin; Z79.01 Long term (current) use of anticoagulants
CPT/HCPCS: 71045; 99285-25; C9803; M0243; Q0244; U0003

== ENCOUNTER 2021-08-07 08:08 | Emergency (ER) | payer MEDICARE, BC ==
[~2021-08-07] VITALS: Ht 157.5 cm; Wt 126.1 kg
[~2021-08-07 08:08] MED LIST changes: +AZITHROMYCIN500 MG PO; +PREDNISONE20 MG PO
--- OUTSIDE RECORDS SUMMARY | 2021-08-07 08:10 | XMS ---
PreManage Notification: EDGARDO HURLEY Security Field Map Technician Events No recent Security Events currently on file CRITERIA MET - [facility] - [facility] - 2 Visits in 30 Days CARE PROVIDERS There are no care providers on record at this time. Alissa has no Care Guidelines for this patient. [place] [facility] MO.) [facility] NOTE: Visits indicate total known visits. ED/C VISIT TRACKING (12 MO.) 08/07/2021 08:08 [facility] [place] [facility] COMPLAINT: - LOW BODY TEMP 08/05/2021 12:40 DUSTIN [place] TYPE: Emergency COMPLAINT: - COUGH, LOW O2 SATS, SORE THROAT INPATIENT VISIT TRACKING (12 MO.) 10/15/2020 09:16 [facility] DIAGNOSES: - Hyperglycemia, unspecified - End stage renal disease - Shortness of breath - Hyperkalemia - Anemia in chronic kidney disease - Localized edema - Thrombosis due to vascular prosthetic devices, implants and grafts, initial encounter - Pulmonary hypertension, unspecified - Other specified personal risk factors, not elsewhere classified - Hypo-osmolality and hyponatremia - Dependence on renal dialysis [email or web address]
== END 2021-08-07 12:31 | disposition home or self-care (01) ==
LOC: ED 08:08
DX: E11.65 Type 2 diabetes mellitus with hyperglycemia (principal); U07.1 COVID-19; I10 Essential (primary) hypertension; Z88.0 Allergy status to penicillin; Z88.5 Allergy status to narcotic agent; Z79.899 Other long term (current) drug therapy; Z79.52 Long term (current) use of systemic steroids; Z79.82 Long term (current) use of aspirin; Z79.4 Long term (current) use of insulin; Z79.01 Long term (current) use of anticoagulants
CPT/HCPCS: 99285; J1815

== ENCOUNTER 2021-10-08 18:30 | Emergency (ER) | payer MEDICARE, BC ==
[~2021-10-08] VITALS: Ht 157.5 cm; Wt 126.1 kg
[~2021-10-08 18:30] MED LIST changes: +ALPHAGAN P5 M1 OU; +HYDROCODON-ACE1 EAC8 PO
--- OUTSIDE RECORDS SUMMARY | 2021-10-08 18:32 | XMS ---
PreManage Notification: EDGARDO HURLEY Security Aerosol Line Operator Events No recent Security Events currently on file CRITERIA MET - [facility] CARE PROVIDERS CAMPBE[place] CHANEL Area Development Manager/Data Processing Specialist 08/08/2021-Current PHONE: [phone] Alissa has no Care Guidelines for this patient. [place] VISIT COUNT (12 MO.) 3 DUSTIN Ross TOTAL 3 NOTE: Visits indicate total known visits. ED/UCC VISIT TRACKING (12 MO.) 10/08/2021 18:30 DUSTIN [place] TYPE: Emergency COMPLAINT: - HIGH BLOOD SUGAR 08/07/2021 08:08 DUSTIN [place] TYPE: Emergency COMPLAINT: - LOW BODY TEMP DIAGNOSES: - Allergy status to penicillin - Other jail (current) drug therapy - rodent exterminator (current) use of systemic steroids - rodent exterminator (current) use of insulin - COVID-19 - Type 2 diabetes mellitus with hyperglycemia - rodent exterminator (current) use of aspirin - correction (current) use of anticoagulants - Essential (primary) hypertension - Allergy status to narcotic agent 08/05/2021 12:40 DUSTIN [place] TYPE: Emergency COMPLAINT: - COUGH, LOW O2 SATS, SORE THROAT DIAGNOSES: - correction (current) use of aspirin - correction (current) use of insulin - Allergy status to penicillin - COVID-19 - correction (current) use of anticoagulants - Essential (primary) hypertension - Encounter for immunization - Allergy status to narcotic agent - Shortness of breath - Type 2 diabetes mellitus without complications - Other terminal operator (current) drug therapy INPATIENT VISIT TRACKING (12 MO.) 10[facility]2020 [facility] TYPE: Vascular Surgery DIAGNOSES: - Hyperglycemia, unspecified - End stage renal disease - Shortness of breath - Hyperkalemia - Anemia in chronic kidney disease - Localized edema - Thrombosis due to vascular prosthetic devices, implants and grafts, initial encounter - Pulmonary hypertension, unspecified - Other specified personal risk factors, not elsewhere classified - Hypo-osmolality and hyponatremia - Dependence on renal dialysis [email or web address]
[2021-10-08] MEDS ORDERED: CEPHALEXIN500 MG PO (22:12)
[2021-10-08] MEDS ORDERED: ONDANSETRON ODT8 MG PO (22:12)
== END 2021-10-08 22:47 | disposition home or self-care (01) ==
LOC: ED 18:30
DX: E11.65 Type 2 diabetes mellitus with hyperglycemia (principal); I10 Essential (primary) hypertension; Z79.82 Long term (current) use of aspirin; Z79.899 Other long term (current) drug therapy; Z79.01 Long term (current) use of anticoagulants; Z79.4 Long term (current) use of insulin; Z88.0 Allergy status to penicillin; Z88.5 Allergy status to narcotic agent
CPT/HCPCS: 71045; 80048; 81001; 82803; 83690; 85025; 85610; 96365; 96375; 99284-25; A9270; J0696; J2405; J7040

== ENCOUNTER 2021-10-10 07:29 | Emergency (ER) | payer MEDICARE, BC ==
[~2021-10-10] VITALS: Ht 157.5 cm; Wt 131.1 kg
[~2021-10-10 07:29] MED LIST changes: +CEPHALEXIN500 MG PO; +ONDANSETRON ODT8 MG PO
--- OUTSIDE RECORDS SUMMARY | 2021-10-10 07:32 | XMS ---
PreManage Notification: EDGARDO HURLEY Security Audio Visual Secretary Events No recent Security Events currently on file CRITERIA MET - [facility] - 2 Visits in 30 Days - [facility] CARE PROVIDERS CHANEL CAMPBELL Education Spec/City Dispatch Supervisor 08/08/2021-Current PHONE: [phone] Alissa has no Care Guidelines for this patient. [place] VISIT COUNT (12 MO.) 4 [facility] TOTAL 4 NOTE: Visits indicate total known visits. ED/UCC VISIT TRACKING (12 MO.) 10/10/2021 07:30 DUSTIN [place] TYPE: Emergency COMPLAINT: - LOW BLOOD SUGAR 10/08/2021 18:30 [facility] [place] TYPE: Emergency COMPLAINT: - HIGH BLOOD SUGAR 08/07/2021 08:08 [facility] [place] TYPE: Emergency COMPLAINT: - LOW BODY TEMP DIAGNOSES: - Allergy status to penicillin - Other [facility] (current) drug therapy - termite control technician (current) use of systemic steroids - termite control technician (current) use of insulin - COVID-19 - Type 2 diabetes mellitus with hyperglycemia - termite control technician (current) use of aspirin - half-way (current) use of anticoagulants - Essential (primary) hypertension - Allergy status to narcotic agent 08/05/2021 12:40 DUSTIN Hinson TYPE: Emergency COMPLAINT: - COUGH, LOW O2 SATS, SORE THROAT DIAGNOSES: - half-way (current) use of aspirin - termite control technician (current) use of insulin - Allergy status to penicillin - COVID-19 - termite control technician (current) use of anticoagulants - Essential (primary) hypertension - Encounter for immunization - Allergy status to narcotic agent - Shortness of breath - Type 2 diabetes mellitus without complications - Other roasterman (current) drug therapy INPATIENT VISIT TRACKING (12 MO.) 10/15/2020 09[facility] TYPE: Vascular Surgery DIAGNOSES: - Hyperglycemia, unspecified - End stage renal disease - Shortness of breath - Hyperkalemia - Anemia in chronic kidney disease - Localized edema - Thrombosis due to vascular prosthetic devices, implants and grafts, initial encounter - Pulmonary hypertension, unspecified - Other specified personal risk factors, not elsewhere classified - Hypo-osmolality and hyponatremia - Dependence on renal dialysis [email or web address]
== END 2021-10-10 09:19 | disposition home or self-care (01) ==
LOC: ED 07:29
DX: E11.649 Type 2 diabetes mellitus with hypoglycemia without coma (principal); K29.00 Acute gastritis without bleeding; E11.22 Type 2 diabetes mellitus with diabetic chronic kidney disease; I12.9 Hypertensive chronic kidney disease with stage 1 through stage 4 chronic kidney disease, or unspecified chronic kidney disease; N18.9 Chronic kidney disease, unspecified; Z99.2 Dependence on renal dialysis; Z88.0 Allergy status to penicillin; Z88.5 Allergy status to narcotic agent; Z79.82 Long term (current) use of aspirin; Z79.01 Long term (current) use of anticoagulants; Z79.4 Long term (current) use of insulin; Z79.899 Other long term (current) drug therapy
CPT/HCPCS: 36415; 80048; 85025; 96374; 96375; 99285-25; J2405

== ENCOUNTER 2021-10-10 11:55 | Emergency (ER) | payer MEDICARE, BC ==
[~2021-10-10] VITALS: Ht 157.5 cm; Wt 131.1 kg
--- OUTSIDE RECORDS SUMMARY | 2021-10-10 11:58 | XMS ---
PreManage Notification: EDGARDO HURLEY Security Association Executive Events No recent Security Events currently on file CRITERIA MET - [facility] - 2 Visits in 30 Days - [facility] CARE PROVIDERS CHANEL CAMPBELL Production Support Engineer/Shoulder Boner 08/08/2021-Current PHONE: [phone] Alissa has no Care Guidelines for this patient. [place] VISIT COUNT (12 MO.) [address] [place] [address] TOTAL 5 NOTE: Visits indicate total known visits. ED/UCC VISIT TRACKING (12 MO.) 10/10/2021 11:56 DUSTIN [place] TYPE: Emergency COMPLAINT: - N/V 10/10/2021 07:30 [facility] [place] TYPE: Emergency COMPLAINT: - LOW BLOOD SUGAR 10/08/2021 18:30 [facility] [place] TYPE: Emergency COMPLAINT: - HIGH BLOOD SUGAR 08/07/2021 08:08 DUST[facility] [place] TYPE: Emergency COMPLAINT: - LOW BODY TEMP DIAGNOSES: - Allergy status to penicillin - Other extermination inspector (current) drug therapy - terminal superintendent (current) use of systemic steroids - assisted (current) use of insulin - COVID-19 - Type 2 diabetes mellitus with hyperglycemia - assisted (current) use of aspirin - assisted (current) use of anticoagulants - Essential (primary) hypertension - Allergy status to narcotic agent 08/05/2021 12:40 DUSTIN [place] TYPE: Emergency COMPLAINT: - COUGH, LOW O2 SATS, SORE THROAT DIAGNOSES: - terminal superintendent (current) use of aspirin - terminal superintendent (current) use of insulin - Allergy status to penicillin - COVID-19 - terminal superintendent (current) use of anticoagulants - Essential (primary) hypertension - Encounter for immunization - Allergy status to narcotic agent - Shortness of breath - Type 2 diabetes mellitus without complications - Other extermination inspector (current) drug therapy INPATIENT VISIT TRACKING (12 MO.) [facility]/2020 09[facility] DIAGNOSES: - Hyperglycemia, unspecified - End stage renal disease - Shortness of breath - Hyperkalemia - Anemia in chronic kidney disease - Localized edema - Thrombosis due to vascular prosthetic devices, implants and grafts, initial encounter - Pulmonary hypertension, unspecified - Other specified personal risk factors, not elsewhere classified - Hypo-osmolality and hyponatremia - Dependence on renal dialysis [email or web address]
== END 2021-10-10 17:15 | disposition short-term general hospital (02) ==
LOC: ED 11:55
DX: N18.9 Chronic kidney disease, unspecified (principal); E87.5 Hyperkalemia; I12.9 Hypertensive chronic kidney disease with stage 1 through stage 4 chronic kidney disease, or unspecified chronic kidney disease; E11.22 Type 2 diabetes mellitus with diabetic chronic kidney disease; Z88.0 Allergy status to penicillin; Z88.5 Allergy status to narcotic agent; Z79.899 Other long term (current) drug therapy; Z79.82 Long term (current) use of aspirin; Z79.4 Long term (current) use of insulin; Z79.01 Long term (current) use of anticoagulants; Z20.822 Contact with and (suspected) exposure to COVID-19
CPT/HCPCS: 36415; 80048; 83605; 84484; 99285; C9803; U0003